=== PATIENT | female | born 1940 | race Caucasian/White ===

== ENCOUNTER 2016-05-25 11:49 | Outpatient (CLI) | payer MEDICARE, OTHER | END 2016-05-25 11:50 | disposition home or self-care (01) | DX: M25.561 Pain in right knee (principal); M17.11 Unilateral primary osteoarthritis, right knee; S83.241A Other tear of medial meniscus, current injury, right knee, initial encounter; M94.261 Chondromalacia, right knee; M25.461 Effusion, right knee ==

== ENCOUNTER 2016-05-25 11:51 | Outpatient (CLI) | payer MEDICARE, OTHER | END 2016-05-25 11:52 | disposition home or self-care (01) | DX: Z12.31 Encounter for screening mammogram for malignant neoplasm of breast (principal); Z80.3 Family history of malignant neoplasm of breast ==

== ENCOUNTER 2017-06-03 09:30 | Outpatient (CLI) | payer MEDICARE, OTHER ==
--- NOTE | 2017-06-04 17:01 | Mammography Report ---
DATE OF SERVICE: 06/03/2017 DIGITAL SCREENING MAMMOGRAM: 06/03/2017 CLINICAL INDICATION: A 76-year-old for screening. COMPARISON: 05/2016, 05/2015, 04/2014, 09/2012, 09/2011, 09/2010, 07/2009, 06/2009. The breasts again demonstrate heterogeneously dense fibroglandular parenchyma bilaterally. Coarse and punctate, typically benign calcifications are present. No suspicious masses, clustered microcalcifications, or regions of architectural distortion are identified. IMPRESSION: Benign findings. RECOMMENDATIONS: Routine annual screening unless otherwise clinically indicated. BIRADS category 2 benign findings. STANDARD QUALIFYING STATEMENTS 1. This examination was reviewed with the aid of Computed-Aided Detection (CAD). 2. A negative or benign imaging report should not delay biopsy if clinically suspicious findings are present. Consider surgical consultation if warranted. More than 5% of cancers are not identified by imaging. 3. Dense breasts may obscure an underlying neoplasm. TD: 06/04/2017 18:00
== END 2017-06-03 09:31 | disposition home or self-care (01) ==
LOC: DI 09:30
PROVIDERS: ATTEND Internal Medicine
DX: Z12.31 Encounter for screening mammogram for malignant neoplasm of breast (principal)
CPT/HCPCS: 77067

== ENCOUNTER 2017-06-03 09:36 | Outpatient (CLI) | payer MEDICARE, OTHER ==
--- NOTE | 2017-06-04 09:57 | DEXA Report ---
DEXA: 06/03/2017 CLINICAL INDICATION: Osteopenia, postmenopausal. TECHNIQUE: Dual energy x-ray absorptiometry (DXA) was performed on a [employer] system. Regions measured are the AP spine, femoral neck, and, if needed, forearm. COMPARISON: None. In accordance with the International Society for Clinical Densitometry (ISCD) guidelines, data from previous exams may be reanalyzed using current recommendations and techniques. This is done to allow a more accurate basis for comparison with the current study. FINDINGS The data for the lumbar spine is as follows: REGION BMD (g/cm/cm) T-SCORE Z-SCORE L1 1.231 0.8 2.5 L2 1.238 0.3 2.0 L3 1.349 1.2 2.9 L4 1.159 -0.3 1.3 TOTAL 1.240 0.5 2.1 NOTE: All evaluable vertebrae are used for classification. The data for the hip is as follows: REGION BMD (g/cm/cm) T-SCORE Z-SCORE Neck 0.743 -2.1 -0.2 TOTAL 0.857 -1.2 0.5 NOTE: The femoral neck or total proximal femur, whichever is lowest, is used for classification. IMPRESSION THE WHO CLASSIFICATION BASED ON THE INTERNATIONAL REFERENCE STANDARD IS OSTEOPENIA. THE FRACTURE RISK IS INCREASED. RECOMMENDATION: Patients with diagnosis of osteoporosis or osteopenia should have regular bone mineral density assessment. For those eligible for Medicare, routine testing is allowed once every 2 years. Testing frequency can be increased for patients who have rapidly progressing disease or for those who are receiving medical therapy to restore bone mass. COMMENT: World Health Organization (WHO) definitions for osteoporosis and osteopenia: NORMAL BMD: T-score at 1.0 or higher, fracture risk is low. OSTEOPENIA BMD: T-score between 1.0 and -2.5, fracture risk is increased. OSTEOPOROSIS BMD: T-score at 2.5 or lower, fracture risk high. National Osteoporosis Foundation recommends: 1. Obtain adequate dietary calcium (at least 1200 mg per day) and vitamin D (400 -800 international units per day). 2. Participate, as appropriate, in regular weightbearing and muscle- strengthening exercise. 3. Avoid tobacco use and reduce alcohol and caffeine intake. 4. For more detailed information see the website at www.NOF.org. TD: 06/03/2017 17:49 [email or web address]
== END 2017-06-03 09:37 | disposition home or self-care (01) ==
LOC: DI 09:36
PROVIDERS: ATTEND Internal Medicine
DX: M85.88 Other specified disorders of bone density and structure, other site (principal)
CPT/HCPCS: 77080

== ENCOUNTER 2017-07-13 08:00 | Outpatient (CLI) | payer MEDICARE, OTHER | END 2017-07-13 08:01 | disposition home or self-care (01) | LOC: LAB.R 08:00 | PROVIDERS: ATTEND Internal Medicine | DX: R19.7 Diarrhea, unspecified (principal) | CPT/HCPCS: 81599; 83630; 87045; 87046; 87177; 87209; 87329; 87493 ==

== ENCOUNTER 2017-12-27 10:06 | Outpatient (CLI) | payer MEDICARE, OTHER ==
[2017-12-27] MEDS ORDERED: REGADENOSON 0.4 MG/5 ML SYRINGE IVP ONE ×2 (12:32→13:55)
--- NOTE | 2017-12-27 14:55 | Nuclear Medicine Report ---
Procedure Date: 12/27/2017 Accession Number: [id number] / [id number] Procedure: NM - Myocardial Perfusion STR/RST CPT Code: FULL RESULT: EXAM: SINGLE-ISOTOPE PHARMACOLOGICAL STRESS TEST WITH REGADENOSON. SINGLE-ISOTOPE AND ONE-DAY REST/STRESS MYOCARDIAL PERFUSION SCANS WITH TOMOGRAPHIC IMAGING, QUANTITATIVE ANALYSIS, WALL MOTION ANALYSIS AND CALCULATION OF EJECTION FRACTION. EXAM DATE: 12/27/2017 02:35 PM. CLINICAL HISTORY: FATIGUE, BRADYCARDIA. COMPARISON: None available. TECHNIQUE: After the intravenous administration of 8.6 mCi of Tc-99m sestamibi, a rest myocardial perfusion scan was done with tomography. Motion correction was applied when appropriate. After an appropriate delay, pharmacological stress was performed with the infusion of 0.4 mg regadenoson per protocol. According to protocol, 42.3 mCi of Tc-99m sestamibi was injected for stress myocardial perfusion scan. Motion correction was applied when appropriate. Gated tomographic images were obtained for wall motion analysis and computation of left ventricular ejection fraction. ECG findings reported separately FINDINGS: There is a small, mild, fixed defect in the distal anterior wall. No convincing reversible perfusion defects. Computer analysis: Summed stress score 1 Summed rest score 0 Summed difference score 1 Wall motion analysis demonstrates no focal wall motion abnormality. The left ventricular end-diastolic volume is 73 cc. The left ventricular end-systolic volume is 15 cc. The left ventricular ejection fraction is calculated to be 80%. IMPRESSION: 1. Mild fixed distal anterior wall perfusion defect. No convincing reversible perfusion defects. 2. Left ventricular ejection fraction of 80%. This is likely an overestimate. 3. Normal segmental and global wall motion. 4. Normal left ventricular cavity size, no change with stress. 5. Based on computer analysis, normal study with no ischemia. RADIA
[2017-12-27 16:15] VITALS: BP 162/60
--- NOTE | 2017-12-27 16:38 | CARDIAC PROCEDURE NOTE ---
DATE OF SERVICE: 12/27/2017 Physician: Joann Mclaughlin MD FINDINGS: Heart rate response baseline 54 to maximum 86. Blood pressure response 162/60 to maximum 176/60. Symptoms: No chest pain, arrhythmias. One PVC seen. ST segment response. The patient had baseline diffuse early repolarization, which is mild. No significant ST segment elevations or depre ssions. CONCLUSION: No symptoms. No significant ST segment changes. Await imaging studies. TD: 12/27/2017 13:21
== END 2017-12-27 10:07 | disposition home or self-care (01) ==
LOC: DI 10:06
PROVIDERS: ATTEND Internal Medicine
DX: R00.1 Bradycardia, unspecified (principal); R53.83 Other fatigue
CPT/HCPCS: 78452; 93017; A9500; J2785

== ENCOUNTER 2018-09-01 15:48 | Outpatient (CLI) | payer MEDICARE, OTHER ==
--- NOTE | 2018-09-01 16:51 | Mammography Report ---
Reason: SCREENING MAMMO Procedure Date: 09/01/2018 Accession Number: [id number] / [id number] Procedure: REYMUNDO - Screening Mammo w/James CPT Code: FULL RESULT: EXAM: Screening Mammo w/James DATE: 09/01/2018 4:18 PM CLINICAL HISTORY: Screening examination. TECHNIQUE: (B) - Bilateral CC and MLO views were obtained. COMPARISON: 06/03/2017, 05/25/2016 PARENCHYMAL PATTERN: (D) - The breasts demonstrate heterogeneously dense fibroglandular parenchyma bilaterally. FINDINGS: There is a left breast asymmetry seen only on the 2-D and 3-D MLO views. On left MLO 3-D mammography it is seen on slice 16 and localizes to the central left breast, 3:00 position. It is not seen on CC views, probably because of dense breast parenchyma. IMPRESSION: Incomplete examination. BI-RADS category 0. RECOMMENDATION: (ADDUS) - Targeted ultrasound recommended. Callback targeted left breast ultrasound is recommended. BI-RADS CATEGORY: (0) - Incomplete Examination - need additional evaluation. STANDARD QUALIFYING STATEMENTS: 1. This examination was not reviewed with the aid of Computer-Aided Detection (CAD). 2. A negative or benign imaging report should not preclude biopsy if clinically suspicious findings are present. 3. Dense breasts may obscure an underlying neoplasm. 4. This examination was reviewed with the aid of 3D breast imaging (tomosynthesis).
== END 2018-09-01 15:49 | disposition home or self-care (01) ==
LOC: DI 15:48
PROVIDERS: ATTEND Internal Medicine
DX: Z12.31 Encounter for screening mammogram for malignant neoplasm of breast (principal)
CPT/HCPCS: 77063; 77067

== ENCOUNTER 2018-09-09 12:32 | Outpatient (CLI) | payer MEDICARE, OTHER ==
--- NOTE | 2018-09-13 13:44 | Ultrasound Report ---
Reason: ABNORMAL MAMMOGRAM Procedure Date: 09/09/2018 Accession Number: [id number] / [id number] Procedure: US - Breast Unilateral Limited CPT Code: FULL RESULT: EXAM: LEFT BREAST ULTRASOUND WAS PERFORMED. EXAM DATE: 09/09/2018 01:50 PM. CLINICAL HISTORY: ABNORMAL MAMMOGRAM. COMPARISON: Prior mammograms dating from 09/01/2018 through 07/11/2009. TECHNIQUE: Focused left breast ultrasound at the 2:00 and 3 o'clock position approximately 5 cm from the nipple was performed. Grayscale and limited color Doppler utilized. FINDINGS: An ill-defined hypoechoic mass is identified which measures 4.9 x 1.5 cm. The finding is suspicious. IMPRESSION: Hypoechoic ill-defined mass, suspicious finding. Recommendation: Ultrasound-guided biopsy. BI-RADS 4. RADIA
== END 2018-09-09 12:33 | disposition home or self-care (01) ==
LOC: DI 12:32
PROVIDERS: ATTEND Internal Medicine
DX: R92.8 Other abnormal and inconclusive findings on diagnostic imaging of breast (principal)
CPT/HCPCS: 76642

== ENCOUNTER 2018-09-14 14:49 | Outpatient (CLI) | payer MEDICARE, OTHER ==
--- NOTE | 2018-09-15 11:23 | XRAY Report ---
Reason: JOINT PAIN Procedure Date: 09/14/2018 Accession Number: [id number] / [id number] Procedure: WCP - Foot 2 View BILAT CPT Code: FULL RESULT: EXAMS: 1. Right Foot Radiography 2. Left Foot Radiography EXAM DATE: 09/14/2018 03:04 PM. CLINICAL HISTORY: Rheumatoid arthritis. COMPARISON: None. TECHNIQUE: 2 views each foot. FINDINGS: Right: Bones: Qualitatively mildly osteopenic. No fracture detected no erosion detected Joints: There are mild degenerative changes in the midfoot without overt erosive degeneration typical of rheumatoid arthritis. Soft Tissues: Normal. No soft tissue swelling. Left: Bones: The bones are qualitatively osteopenic; this limits evaluation for underlying fractures or masses. No fracture detected no definite erosions detected. Joints: Degenerative midfoot changes without melisa erosions. Soft Tissues: Normal. No soft tissue swelling. IMPRESSION: Degenerative midfoot changes without overt erosions. Qualitatively osteopenic. RADIA
== END 2018-09-14 14:50 | disposition home or self-care (01) ==
LOC: DI.WCP 14:49
PROVIDERS: ATTEND Internal Medicine Rheumatology
DX: M19.072 Primary osteoarthritis, left ankle and foot (principal); M19.071 Primary osteoarthritis, right ankle and foot; M85.872 Other specified disorders of bone density and structure, left ankle and foot; M85.871 Other specified disorders of bone density and structure, right ankle and foot

== ENCOUNTER 2018-09-14 14:50 | Outpatient (CLI) | payer MEDICARE, OTHER ==
--- NOTE | 2018-09-15 16:04 | XRAY Report ---
Reason: JOINT PAIN Procedure Date: 09/14/2018 Accession Number: [id number] / [id number] Procedure: WCP - Hand 2 View BILAT CPT Code: FULL RESULT: EXAMS: 1. Right Hand Radiography 2. Left Hand Radiography EXAM DATE: 09/14/2018 03:04 PM. CLINICAL HISTORY: Rheumatoid arthritis. COMPARISON: HAND 3 VIEW LT 01/06/2013 3:55 PM. TECHNIQUE: 2 views each hand. FINDINGS: Right: Bones: Normal. No fractures or bone lesions. Joints: Mild joint space narrowing of the interphalangeal joints with periarticular osteopenia. Soft Tissues: Normal. No soft tissue swelling. Left: Bones: Normal. No fractures or bone lesions. Joints: Compared to 2012, there has been interval development of marked joint space narrowing with proliferative as well as destructive changes, most pronounced in the proximal fifth interphalangeal joint and distal fourth interphalangeal joint, but also present in other interphalangeal joints. Mild degenerative changes are seen at the base of the thumb. Soft Tissues: Normal. No soft tissue swelling. IMPRESSION: Compared to 2012, marked progression of joint space disease with the appearance suggestive of erosive as well as proliferative degenerative disease. RADIA
== END 2018-09-14 14:51 | disposition home or self-care (01) ==
LOC: DI.WCP 14:50
PROVIDERS: ATTEND Internal Medicine Rheumatology
DX: M19.042 Primary osteoarthritis, left hand (principal); M19.041 Primary osteoarthritis, right hand; M19.072 Primary osteoarthritis, left ankle and foot; M19.071 Primary osteoarthritis, right ankle and foot; M85.872 Other specified disorders of bone density and structure, left ankle and foot; M85.871 Other specified disorders of bone density and structure, right ankle and foot

== ENCOUNTER 2018-09-23 08:05 | Outpatient (CLI) | payer MEDICARE, OTHER ==
[2018-09-23] MEDS ORDERED: BUPIVACAINE 0.5%-EPI 1:200000 PF 10 ML VIAL ONE (09:02)
[2018-09-23] MEDS ORDERED: BUFFERED LIDOCAINE 10 ML SYRINGE ONE (09:02)
--- NOTE | 2018-09-23 14:58 | Ultrasound Report ---
Reason: LT BREAST MASS Procedure Date: 09/23/2018 Accession Number: [id number] / [id number] Procedure: US - Biopsy Breast Core CPT Code: FULL RESULT: PROCEDURE: Ultrasound-guided needle biopsy left breast mass. CLINICAL DATA: Targeted mass measuring approximately 4.9 x 1.5 cm with irregular margins in the 3 o'clock axis of the left breast. Informed consent was obtained. Using standard aseptic technique, both 1% buffered lidocaine and Sensorcaine were injected into the left breast for local anesthesia. A small radha was made in the skin with a #11 blade. A 12-gauge CouponCabin vacuum-assisted device was used to obtain 4 specimens. A specialized biopsy marker clip was placed into the biopsy cavity under ultrasound guidance. The patient was taken to separate mammography machine and a two-view digital mammography was performed to verify the clip placement and any complications. The mammography showed expected clip positioning. The wound was dressed and ice applied. The patient was observed for approximately 15 minutes, then was discharged from diagnostic imaging Department in good condition following instructions on wound care and obtaining biopsy results. The patient is scheduled to receive the biopsy results from the referring physician. The tissue was sent for histologic analysis. IMPRESSION: Ultrasound-guided biopsy of the left breast. AN ADDENDUM WILL BE MADE TO THIS REPORT WHEN PATHOLOGY IS REVIEWED TO ESTABLISH CONCORDANCE.
[2018-09-23] MEDS ORDERED: BUFFERED LIDOCAINE 10 ML SYRINGE IU ONE (18:41)
[2018-09-23] MEDS ORDERED: BUPIVACAINE 0.5%-EPI 1:200000 PF 10 ML VIAL SUBQ ONE (18:41)
== END 2018-09-23 08:06 | disposition home or self-care (01) ==
LOC: DI 08:05
PROVIDERS: ATTEND Internal Medicine
DX: R92.8 Other abnormal and inconclusive findings on diagnostic imaging of breast (principal)
CPT/HCPCS: 19083

== ENCOUNTER 2018-09-30 10:56 | Outpatient (CLI) | payer MEDICARE, OTHER ==
--- NOTE | 2018-09-30 15:38 | XRAY Report ---
Reason: RT KNEE PAIN Procedure Date: 09/30/2018 Accession Number: [id number] / [id number] Procedure: XR - Knee Standing RT CPT Code: FULL RESULT: EXAM: RIGHT KNEE RADIOGRAPHY EXAM DATE: 09/30/2018 11:16 AM. CLINICAL HISTORY: RT KNEE PAIN. COMPARISON: None. TECHNIQUE: 2 views. FINDINGS: Bones: Normal. No fractures or bone lesions. Joints: Medial joint space osteophyte, joint space narrowing, subchondral sclerosis. Osteophyte patellofemoral compartment. Small effusion. Soft Tissues: Normal. No soft tissue swelling. IMPRESSION: Moderate to severe DJD RADIA
== END 2018-09-30 10:57 | disposition home or self-care (01) ==
LOC: DI 10:56
PROVIDERS: ATTEND Internal Medicine Rheumatology
DX: M17.11 Unilateral primary osteoarthritis, right knee (principal)

== ENCOUNTER 2019-06-07 06:16 | Inpatient (IN) | payer MEDICARE, OTHER ==
[2019-06-07] MEDS ORDERED: CEFAZOLIN SODIUM IN 0.9 % NACL 2 GM/100 ML BAG IV ONE (06:19)
[2019-06-07] MEDS ORDERED: LACTATED RINGERS 1,000 ML IV ONE (06:32)
[2019-06-07] MEDS ORDERED: BUPIVACAINE 0.5% PF 30 ML VIAL ONE (06:40)
[2019-06-07] MEDS ORDERED: CELECOXIB 100 MG CAPSULE PO ONE (07:02)
[2019-06-07] MEDS ORDERED: GABAPENTIN 400 MG CAPSULE ONE (07:02)
[2019-06-07] MEDS ORDERED: ACETAMINOPHEN 1,000 MG/100 ML 100 ML IV ONE (07:03)
--- NOTE | 2019-06-07 07:14 | ANESTHESIA ---
Pre-Anesthesia VS, & Labs - Diagnosis right knee pain, OA - Procedure right total knee arthroplasty Vital Signs: Temp Pulse Resp BP Pulse Ox 36.3 C L 72 16 139/57 H 98 06/07/19 06:41 06/07/19 06:41 06/07/19 06:41 06/07/19 06:41 06/07/19 06:41 Height 5 ft 3 in Weight (kg) 72 kg - NPO >8 hours - Is Patient ?: No Home Medications and Allergies Home Medications: Ambulatory Orders Acetaminophen [8 Hour Acetaminophen] 650 mg PO BID 06/02/19 Amlodipine Besylate 10 mg PO DAILY 06/02/19 Atorvastatin [Lipitor] 10 mg PO QPM 06/02/19 Calcium Carbonate [Calcium] 600 mg PO DAILY 06/02/19 Cyanocobalamin (Vitamin B-12) [Vitamin B-12] 1,000 mcg PO DAILY 06/02/19 Ferrous Gluconate [Iron] 240 mg PO DAILY 06/02/19 Multivitamin [Multiple Vitamins] 1 each PO DAILY 06/02/19 Enalapril Maleate 20 mg PO DAILY 09/28/12 Hydrochlorothiazide 25 mg PO DAILY 09/28/12 Trazodone HCl 100 mg PO HS 09/28/12 Acetaminophen [8 Hour Acetaminophen] 650 mg PO BID 06/02/19 Amlodipine Besylate 10 mg PO DAILY 06/02/19 Atorvastatin [Lipitor] 10 mg PO QPM 06/02/19 Calcium Carbonate [Calcium] 600 mg PO DAILY 06/02/19 Cyanocobalamin (Vitamin B-12) [Vitamin B-12] 1,000 mcg PO DAILY 06/02/19 Ferrous Gluconate [Iron] 240 mg PO DAILY 06/02/19 Multivitamin [Multiple Vitamins] 1 each PO DAILY 06/02/19 Allergies/Adverse Reactions: Allergies Allergy/AdvReac Type Severity Reaction Status Date / Time No Known Drug Allergies Allergy Verified 06/07/19 06:53 Anes History & Medical History - Anesthetic History Anesthesia Complications: reports: No previous complications - Medical History Cardiovascular: reports: Hypertension Pulmonary: reports: None Gastrointestinal: reports: None Urinary: reports: None Musculoskeletal: reports: Osteoarthritis, Osteopenia Endocrine/Autoimmune: reports: None Skin: reports: Other - Surgical History General: Colonoscopy Eyes Ears Nose Throat (EENT): Cataracts Exam General: Alert Dental: WNL Mouth Opening: Greater than 4 Fingerbreadths Mallampati classification: II Thyromental Distance: greater than 6 cm Respiratory: Lungs clear Cardiovascular: Regular rate, Normal S1, Normal S2 Plan Anesthesia Type: Spinal, Femoral Block Consent for Procedure(s) Verified and Reviewed: Yes Code Status: Attempt Resuscitation ASA classification: 2-Mild systemic disease Is this case an emergency?: No
[2019-06-07] MEDS ORDERED: BUPIVACAINE 0.5% PF 30 ML VIAL INFIL ONE ×2 (08:21)
--- NOTE | 2019-06-07 10:38 | IMMEDIATE POSTOPERATIVE NOTE ---
Immediate Postoperative Note - Procedure Note Procedure Date: 06/07/19 Pre-Op Diagnosis: Right knee degenerative joint disease Procedure: Right total knee arthroplasty Post-Op Diagnosis: Same Primary Surgeon: Katharine More MD Project Development Engineer: None Anesthesia Type: Local, MAC, Regional block, Spinal Findings: Tricompartmental DJD most notable in the medial and patellofemoral compartments Complications: No complications Estimated Blood Loss (in cc): 150 Drains, Catheters, Devices: None Specimens and Cultures: None Plan of Care: Patient tolerated procedure well instrument sponge counts correct patient transferred to the recovery in stable condition she will follow standard postoperative Total knee arthroplasty protocol
[2019-06-07] MEDS ORDERED: PROCHLORPERAZINE 10 MG/2 ML VIAL IVP PRN (10:42)
[2019-06-07] MEDS ORDERED: ACETAMINOPHEN 1,000 MG/100 ML 100 ML IV PRN (10:42)
[2019-06-07] MEDS ORDERED: ONDANSETRON 4 MG/2 ML VIAL IVP PRN (10:42)
[2019-06-07] MEDS ORDERED: SODIUM CHLORIDE FLUSH 0.9% 10 ML SYRINGE IVP PRN (10:42)
[2019-06-07] MEDS ORDERED: HYDROmorphone 0.5 MG/0.5 ML SYRINGE IVP PRN (10:42)
--- NOTE | 2019-06-07 11:57 | PHARMACY PROGRESS NOTE ---
- Best Possible Medication History Admit Date and Time: 06/07/19 0616 Processed by: Nursing Medication History completed: Yes Patient Interview: Pt unable to participate As the person ultimately responsible for medication therapy, providers are able to order a medication from an existing home medication list in [facility] via the "Reconcile Routine" prior to Confirmation of that medication by business support associate. Such practice is discouraged except when the physician, in their clinical judgment, deems that a medical need exists for a medication without regard to previous use.
--- NOTE | 2019-06-07 12:41 | OPERATIVE REPORT ---
DATE OF SERVICE: 06/07/2019 Physician: David More MD SURGEON: David More MD CLINICAL RESEARCH ASSISTANT: None. ANESTHESIOLOGIST: Maryam Diamond CRNA ANESTHESIA: Spinal, MAC, 20 mL of 0.5% plain Marcaine local, right-side adductor block under ultraso und guidance postoperatively. FLUIDS: 600 mL lactated Ringer's. ADDITIONAL MEDICATION: TXA infusion. PREOPERATIVE ANTIBIOTICS: Two grams weight-based IV Ancef. ESTIMATED BLOOD LOSS: Less than 150 mL. TOURNIQUET TIME: 120 minutes at 300 mmHg. ORTHOPEDIC IMPLANTS: 1. Gumaro Persona natural tibia, cemented, 5 degrees, right size E. 2. Gumaro Persona all-poly patella, cemented, 35 x 9 mm. 3. Gumaro Persona femur, cemented, cruciate retaining, size 8. 4. Gumaro Persona highly crosslinked polyethylene, 20-mm height, for sizes E-F/CR, sizes 8-11. 5. Gumaro Jeffrey cement. PREOPERATIVE DIAGNOSIS: Right knee degenerative disease. POSTOPERATIVE DIAGNOSIS: Right knee degenerative disease. PROCEDURE: Right total knee arthroplasty. HISTORY OF PRESENT ILLNESS AND INDICATIONS: Diane is a 78-year-old female who has had significant ri ght knee pain, not responsive to nonoperative treatment. She is indicated for operative treatment. Please see previous discussion with the patient and the patient's daughter in the preoperative clinic visit. We discussed at length risks, benefits, and alternatives. These again highlighted with the p atient and the patient's daughter in the preoperative care unit. The patient verbalized understandin g of the above and verbalized her wish to proceed with operative treatment. Informed consent was giv en. INTRAOPERATIVE FINDINGS: The patient noted to have tricompartmental degenerative disease. Post tria ling, it was felt that a size 14 mm would be appropriate, though with final implantation of 14 noted to be somewhat loose in extension and flexion. As such, post implantation of 20 mm, it was felt to be appropriately stable in extension all the way throughout the arc of motion to flexion as well. Intra-articular, there was noted to be significant medial compartment degenerative disease, less in t he patellofemoral and lateral compartments, though present. There was a slight tightness medially, b ut only minimal anterior medial elevation was required, and this flexion and extension gap was equal. Post fixation and final implantation, there was excellent range of motion greater than full extension to over 130 degrees with stability throughout arc of motion and good patellar tracking throughout. PROCEDURE: On 06/07/2019, patient was identified in the preoperative care unit. She identifies her right knee as the operative site. This was signed by the operating surgeon. The patient received preoperative weight-based IV antibiotics. She was brought to the operating room. Spinal anesthesia was administered. The patient was sedated. The patient's right lower extremity had a well-padded tourniquet placed high on the right side after Lake catheter was inserted. The guru street's right lower extremity was then pre-scrubbed with Hibiclens solution, followed by alcohol prep , and then prepped and draped with ChloraPrep solution in a sterile fashion. At this time, surgical pause then identified right knee as the operative site. Esmarch bandage was u sed to exsanguinate the limb. Tourniquet was inflated, and then anterior knee incision made in the p repatellar area just above the patella, down to the tibial tuberosity. A medial flap was elevated ju st enough such that the medial parapatellar incision could be made in the extensor mechanism. This w as then made through the extensor mechanism, around the medial side of the patella, fat pad was remov ed. The patella was carefully everted with minimal elevation of the most proximal medial aspect of t he patellar tendon. Slight anterior-medial soft-tissue elevation was performed and then ACL was rese cted, followed by clearance of the distal femur, followed by initially 7-degree angle intramedullary femoral guide after drilling of the femur, though it was felt that a 5-degree would be more appropria te, given the patient's anatomy despite preoperative measurements. The 5-degree was selected, distal femoral cut was made at 10 mm, at which point the extramedullary tibial guide was used. The 2-mm's were measured from the most affected medial compartment. This was checked with an moe wing and ebonie pped minimally below this for additional 1 mm, and ultimately the tibial cut was made with protective retractors in appropriate locations. Tibial section was removed. There was noted to be approximate ly 3-4 mm of medial bone removed. At this point, the extension gap was noted to be appropriate and a ttention was directed towards flexion of the knee and then sizing of the femur with appropriate 3-deg ree built in external rotation. Once this was sized and noted to be a size 8 without notching, this was drilled and then the 4-in-1 cutting block was used. Soft tissues were protected and then the fou r cuts were made. Bone was removed, osteophytosis was removed, and flexion and extension gaps were t hen checked and noted to be appropriate and equal. At this point, trial femur and tibia was placed, initially a 10, moving up to a 14, which was felt to be appropriate, though slightly loose in extensi on, and with initially noted to be with good stability throughout, after moving to the 14 mm. At thi s point, the patella was measured and cut to size 35. Osteophytes were removed. This was drilled an d then the patella trial was placed with good tracking throughout arc of motion. At this point, the femur was drilled. The femur was removed. The tibia sized and then drilled and punched ultimately. At this point, repeat implantation of trials was placed with a size 14 and noted to have good positi on and stability throughout with good motion. At this point, all the areas were copiously irrigated. Osteophytes were removed. Any residual menisci were removed. At this point, the surfaces were copi ously irrigated and meticulously dried, and then with modern cement technique, the femoral and tibial implants were placed, residual cement was removed, they were impacted into place and residual cement again removed. The trial poly was placed, the patella was placed and clamped, and residual cement w as removed. Betadine solution, diluted, was placed into the knee while the cement hardened, and then removed. Residual cement was soft and found to be very minimal anteriorly. No lateral, medial, or posterior cement appreciated. At this point, the final 14-mm poly was placed and then with testing of this, it was noted to be some what loose in extension and flexion, with slight opening medially as well. At this point, trials are removed up to a size 18 and then 20 mm, and it was decided that a 20 mm was appropriate, with excell ent stability in extension, flexion and in between. As such, the 14-mm was not used and this was anderson nged to a 20-mm, which was most appropriate in this case. At this point, the poly was noted to be se ated well. There was excellent range of motion and stability throughout arc of motion. Patella trac ked nicely. The wound was copiously irrigated, tourniquet was deflated, hemostasis achieved. It hector uld be noted that prior to cementation, posterior capsule was carefully injected with the aforementio aidan Marcaine. At this point, the extensor mechanism was closed using #2 FiberWire proximally and then 0 Vicryl dist ally. This was again copiously irrigated and the skin was closed in a layered fashion with 0 Vicryl and 2-0 Vicryl, and skin alfredo, followed by washing of skin, drying, and then silver dressing appli cation. Bulky Kelly dressing was placed from thigh to foot, and then Gallito wrap applied. The patient tolerated the procedure well. Instrument and sponge counts were correct. The patient wa s transferred to the recovery room in stable condition. She will be on perioperative antibiotics, pe rioperative DVT prophylaxis with mechanical and chemical DVT prophylaxis. She will return to regular medications and follow standard postoperative total knee arthroplasty protocol. The patient's daughter was contacted in the waiting room, case was discussed, questions were answered to Diane's agreement and satisfaction with plan as outlined. TD: 06/07/2019 11:11
[2019-06-07] MEDS: HYDROcod/ACETAM 5/325 MG TABLET PO PRN ×3 (12:44→20:45)
[2019-06-07] MEDS: SODIUM CHLORIDE FLUSH 0.9% 10 ML SYRINGE IVP SCH (16:59)
[2019-06-07] MEDS: ceFAZolin 2 GM in SODIUM CHLORIDE 0.9% 100ML 100 ML IV SCH (16:59)
[2019-06-07] MEDS: RIVAROXABAN 10 MG TABLET PO SCH (18:05)
[2019-06-08] MEDS: SODIUM CHLORIDE FLUSH 0.9% 10 ML SYRINGE IVP SCH ×3 (00:43→16:26)
[2019-06-08] MEDS: HYDROcod/ACETAM 5/325 MG TABLET PO PRN ×4 (00:43→13:05)
[2019-06-08] MEDS: ceFAZolin 2 GM in SODIUM CHLORIDE 0.9% 100ML 100 ML IV SCH (00:44)
[2019-06-08] MEDS ORDERED: ePHEDrine 50 MG/ML VIAL IVP ONE (08:57)
[2019-06-08] MEDS ORDERED: MIDAZOLAM 2 MG/2 ML VIAL IVP ONE (08:57)
[2019-06-08] MEDS ORDERED: fentaNYL 100 MCG/2 ML VIAL IVP ONE (08:57)
[2019-06-08] MEDS ORDERED: PROPOFOL 200 MG/20 ML VIAL IVP ONE (08:57)
[2019-06-08] MEDS ORDERED: ACETAMINOPHEN 1,000 MG/100 ML 100 ML IV ONE (08:57)
[2019-06-08] MEDS ORDERED: TRANEXAMIC ACID 1,000 MG/10 ML VIAL IV ONE (08:57)
[2019-06-08] MEDS: DOCUSATE SODIUM 100 MG CAPSULE PO PRN (13:51)
[2019-06-08] MEDS: ACETAMINOPHEN 325 MG TABLET PO PRN ×2 (13:51→20:38)
[2019-06-08] MEDS: oxyCODONE 5 MG TABLET PO PRN ×2 (16:25→20:37)
[2019-06-08] MEDS: RIVAROXABAN 10 MG TABLET PO SCH (16:26)
--- NOTE | 2019-06-08 21:34 | PROVIDER PROGRESS NOTE ---
Subjective - Prog Note Date Prog Note Date: 06/08/19 Prog Note Time: 07:00 - Subjective Pt reports feeling: Improved (patient seen this AM stating that she was comfortable and doing well and that she slept relatively well. no current knee c/o) Subjective: states comfortable. no nv/cv c/o at this time Objective - Vital Signs/Intake & Output Vital Signs: Vital Signs x48h Temp Pulse Resp BP Pulse Ox 06/08/19 20:04 37.0 C 57 L 16 141/58 H 97 06/08/19 16:06 36.6 C 59 L 16 139/47 H 100 Intake & Output: Intake & Output 06/05/19 06/06/19 06/07/19 06/08/19 23:59 23:59 23:59 23:59 Intake Total 3350 1980 Output Total 2225 850 Balance 1125 1130 - Other Results/Comments Other Results/Comments: right LE, nv unchanged distally. foot pumps in place. no calf ttp noted. dressing clean dry intact. able to SLR without assist. aaflexion 70-80deg, comfortable throughout. Assessment/Plan - Problem List (1) Right knee DJD Impression: ortho stable pod 1 s/p right tka. no s/sx infx/dvt. cont chem and mech dvt prophylaxis pt for rom/strength, amb training, teaching hep OT SW consult analgesic prn IS q1hr while awake cont current mgt consider dc once clear PT for home environment d/w pt. questions answered. patient verbalized understanding and agreement with above. Qualifiers: Osteoarthritis type: primary Qualified Code(s): M17.11 - Unilateral primary osteoarthritis, right knee
[2019-06-09] MEDS: HYDROcod/ACETAM 5/325 MG TABLET PO PRN ×2 (00:05→04:11)
[2019-06-09] MEDS: SODIUM CHLORIDE FLUSH 0.9% 10 ML SYRINGE IVP SCH ×2 (01:10→08:43)
--- NOTE | 2019-06-09 07:46 | Discharge Plan ---
Discharge Plan Problem Reviewed?: Yes Disposition: Home, Self Care Condition: Good Prescriptions: HYDROcod/ACETAM 5/325 [Hillman 5/325] 1 tab PO Q4HR PRN #30 tablet PRN Reason: Pain oxyCODONE [Roxicodone] 5 mg PO Q4HR PRN #20 tablet PRN Reason: Pain Rivaroxaban [Xarelto] 10 mg PO 1700 #10 tablet Diet: Regular Activity Restrictions: ambulate with assist and assist device prn Shower Restrictions: Yes (keep wound/dressing clean/dry/intact) Driving Restrictions: Yes (no driving) Assistance Devices: Walker Weight Bearing: Full Weight Instruction Topics: Rivaroxaban oral tablets Additional Instructions or Follow Up instructions: please advise on dc medications, highlight to avoid acetaminophen >3grams daily, and no trazadone with narcotic medications, advise on continued stool softener while on narcotics follow-up 10-14 days orthopedic clinic No Smoking: If you smoke, Please STOP! Call for help. Follow-up with: David More MD [Provider Admit Priv/Credential] - Joann Mclaughlin MD [Primary Care Provider] -
[2019-06-09] MEDS ORDERED: MAGNESIUM HYDROXIDE 2,400 MG/30 ML UDC PO PRN (08:00)
[2019-06-09] MEDS: DOCUSATE SODIUM 100 MG CAPSULE PO PRN (08:43)
[2019-06-09] MEDS: oxyCODONE 5 MG TABLET PO PRN (09:18)
[2019-06-09 11:49] VITALS: BP 151/58
== END 2019-06-09 12:00 | disposition home or self-care (01) | DRG 470 ==
LOC: MS2 06:16 → MS3 09:42 → MS2 10:12
PROVIDERS: ADMIT Orthopaedic Surgery Sports Medicine; ATTEND Orthopaedic Surgery Sports Medicine
PROC: 0SRC0J9 Replacement of Right Knee Joint with Synthetic Substitute, Cemented, Open Approach (ICD-10-PCS; principal; 2019-06-07 07:30)
DX: M17.11 Unilateral primary osteoarthritis, right knee (principal); I10 Essential (primary) hypertension; Z79.899 Other long term (current) drug therapy
CPT/HCPCS: 97110; 97116; 97162; 97166; 97530; 97535; A9270; J0131; J7120

== ENCOUNTER 2019-06-13 13:32 | Observation (INO) | payer MEDICARE, OTHER ==
[2019-06-13] MEDS ORDERED: SODIUM CHLORIDE 0.9% 1,000 ML IV STA (14:16)
--- NOTE | 2019-06-13 14:43 | XRAY Report ---
Reason: Chest Pain Procedure Date: 06/13/2019 Accession Number: [id number] / [id number] Procedure: XR - Chest 1 View X-Ray CPT Code: 66225 Final Report FULL RESULT: EXAM: CHEST RADIOGRAPHY EXAM DATE: 06/13/2019 02:33 PM. CLINICAL HISTORY: Chest pain. Passed out in seated shower. COMPARISON: None. TECHNIQUE: 1 view. FINDINGS: Lungs/Pleura: No focal opacities evident. No pleural effusion. No pneumothorax. Mediastinum: Heart size is normal. Aorta is mildly tortuous. Aortic atherosclerosis. Other: Degenerative changes of both shoulders. Thoracic scoliosis. IMPRESSION: 1. No acute disease in the chest. RADIA
--- NOTE | 2019-06-13 14:47 | ED Physician Documentation ---
PD HPI SYNCOPE - Stated complaint Stated Complaint: SYNCOPE - Chief complaint Chief Complaint: Neuro - History obtained from History obtained from: Patient, Family - History of Present Illness Witnessed: Witnessed Timing - onset: Today Duration: Minutes (1-2) Preceding symptoms: No: Headache, Vision changes, Chest pain, Palpitations, Diaphoresis, Dyspnea Associated symptoms: No: Seizure, Incontinant of urine, Incontinant of stool, Headache, Vision changes Contributing factors: Other (was in the shower) Injury occurred: None. No: Fell, Head injury, Neck injury, Bit tongue Pain level max: 0 Pain level now: 0 - Additional information Additional information: 78-year-old female states that she had her knee replacement approximately 1 week ago. Today she was in the shower when she had a syncopal event while sitting on her. She does not recall the event at all. Does not recall any prodrome. Her family states that they believe she was unconscious for approximately 1 minute. They state that she was breathing through the entire episode and never lost a pulse. She had diarrhea after the episode. Currently feels normal. She is status post a right total knee replacement approximately 1 week ago. No chest pain. No shortness of breath. Does not know what medication she takes at home. She states that she has passed out in the past, but not recently. Review of Systems Unable to obtain: Uncooperative Constitutional: denies: Fever Eyes: denies: Photophobia Ears: denies: Ear pain Nose: denies: Rhinorrhea / runny nose, Congestion Throat: denies: Sore throat Cardiac: denies: Chest pain / pressure, Palpitations, Calf pain Respiratory: denies: Dyspnea GI: denies: Abdominal Pain, Nausea, Vomiting, Diarrhea Skin: denies: Rash Musculoskeletal: denies: Neck pain, Back pain Neurologic: denies: Focal weakness, Numbness, Confused, Altered mental status, Headache, Head injury PD PAST MEDICAL HISTORY - Past Medical History Past Medical History: Yes Cardiovascular: Hypertension Respiratory: None Endocrine/Autoimmune: None GI: None : None HEENT: Chronic vision loss Psych: None Musculoskeletal: Osteoarthritis, Osteopenia Derm: Other - Past Surgical History Past Surgical History: Yes General: Colonoscopy HEENT: Cataracts - Present Medications Home Medications: Ambulatory Orders Medication Instructions Recorded Confirmed Enalapril Maleate 20 mg PO BID 09/28/12 06/13/19 Hydrochlorothiazide 12.5 mg PO DAILY 09/28/12 06/13/19 Trazodone HCl 100 mg PO QPM 09/28/12 06/13/19 Amlodipine Besylate 10 mg PO DAILY 06/02/19 06/13/19 Atorvastatin [Lipitor] 10 mg PO QPM 06/02/19 06/13/19 Cyanocobalamin (Vitamin B-12) 1,000 mcg PO DAILY 06/02/19 06/13/19 [Vitamin B-12] Multivitamin [Multiple Vitamins] 1 tab PO DAILY 06/02/19 06/13/19 HYDROcod/ACETAM 5/325 [Lutz 5/325] 1 tab PO Q4HR PRN #30 tablet 06/09/19 06/13/19 Acetaminophen 500 mg PO BID 06/13/19 06/13/19 Calcium/Magnesium/Zinc 1 tab PO DAILY 06/13/19 06/13/19 [Rpchlot-Ozxuvtcbb-Ihnu Tablet] Melatonin 10 mg PO QPM 06/13/19 06/13/19 Rivaroxaban [Xarelto] 10 mg PO 1700 06/13/19 06/13/19 - Allergies Allergies/Adverse Reactions: Allergies Allergy/AdvReac Type Severity Reaction Status Date / Time No Known Drug Allergies Allergy Verified 06/13/19 13:45 - Social History Does the pt smoke?: No Smoking Status: Never smoker Does the pt drink ETOH?: No Does the pt have substance abuse?: No - Immunizations Immunizations: TDAP >10years/unknown PD ED PE NORMAL - Vitals Vital signs reviewed: Yes - General General: Alert and oriented X 3, No acute distress, Well developed/nourished - HEENT HEENT: PERRL, Moist mucous membranes - Neck Neck: Supple, no meningeal sign, No bruit - Cardiac Cardiac: RRR, No murmur, Strong equal pulses - Respiratory Respiratory: No respiratory distress, Clear bilaterally - Abdomen Abdomen: Soft, Non tender, Non distended - Derm Derm: Warm and dry, No rash - Extremities Extremities: Other (Edema to the right lower extremity, consistent with postoperative swelling. No signs of infection) - Neuro Neuro: Alert and oriented X 3 - Psych Psych: Normal mood, Normal affect Results - Vitals Vitals: Vital Signs - 24 hr 06/13/19 06/13/19 06/13/19 13:43 15:00 16:00 Temperature 36.2 C L Heart Rate 64 62 68 Respiratory 20 14 15 Rate Blood Pressure 146/52 H 137/44 H 145/70 H O2 Saturation 99 100 100 Oxygen O2 Source Room air - EKG (time done) 1351 Rate: Rate (enter#) (56) Rhythm: NSR Winslow: Normal Intervals: Normal ID QRS: Normal, LVH Ischemia: Normal ST segments - Labs Labs: Laboratory Tests 06/13/19 06/13/19 06/13/19 13:49 14:32 14:32 WBC 8.3 RBC 3.03 L Hgb 9.4 L Hct 29.2 L MCV 96.4 MCH 31.0 MCHC 32.2 RDW 12.5 Plt Count 251 MPV 9.6 Neut # (Auto) 6.4 Lymph # (Auto) 0.8 L Cassia # (Auto) 0.8 Eos # (Auto) 0.1 Baso # (Auto) 0.0 Absolute Nucleated RBC 0.00 Nucleated RBC % 0.0 Sodium 133 L Potassium 4.3 Chloride 95 L Carbon Dioxide 27 Anion Gap 11.0 BUN 21 H Creatinine 1.0 Estimated GFR (MDRD) 54 L Glucose 149 H POC Whole Bld Glucose 123 H Calcium 9.6 Total Bilirubin 1.0 AST 33 ALT 18 Alkaline Phosphatase 43 Troponin I High Sens Total Protein 7.2 Albumin 3.8 Globulin 3.4 Albumin/Globulin Ratio 1.1 Lipase 26 Urine Color Urine Clarity Urine pH Ur Specific Ignacio Urine Protein Urine Glucose (UA) Urine Ketones Urine Occult Blood Urine Nitrite Urine Bilirubin Urine Urobilinogen Ur Leukocyte Esterase Ur Microscopic Review Urine Culture Comments 06/13/19 06/13/19 14:32 15:41 WBC RBC Hgb Hct MCV MCH MCHC RDW Plt Count MPV Neut # (Auto) Lymph # (Auto) Cassia # (Auto) Eos # (Auto) Baso # (Auto) Absolute Nucleated RBC Nucleated RBC % Sodium Potassium Chloride Carbon Dioxide Anion Gap BUN Creatinine Estimated GFR (MDRD) Glucose POC Whole Bld Glucose Calcium Total Bilirubin AST ALT Alkaline Phosphatase Troponin I High Sens 8.4 Total Protein Albumin Globulin Albumin/Globulin Ratio Lipase Urine Color YELLOW Urine Clarity CLEAR Urine pH 7.0 Ur Specific Ignacio 1.010 Urine Protein NEGATIVE Urine Glucose (UA) NEGATIVE Urine Ketones NEGATIVE Urine Occult Blood NEGATIVE Urine Nitrite NEGATIVE Urine Bilirubin NEGATIVE Urine Urobilinogen 0.2 (NORMAL) Ur Leukocyte Esterase NEGATIVE Ur Microscopic Review NOT INDICATED Urine Culture Comments NOT INDICATED - Rads (name of study) Chest x-ray Radiology: Prelim report reviewed, EMP read contemporaneously, See rad report (No acute disease in the chest. ) PD MEDICAL DECISION MAKING - ED course Complexity details: reviewed results, re-evaluated patient, considered differential, d/w patient, d/w family, d/w biztalk consultant ED course: Patient presents to the emergency department with syncope today. No prodrome. Does not recall the event. Concerning for potential arrhythmia. No evidence of pulmonary embolus. We will place the patient on the hospital for observation and further evaluation. Discussed the case with Dr. Blue, hospitalist who accepts This document was made in part using voice recognition software. While efforts are made to proofread this document, sound alike and grammatical errors may occur. Departure - Departure Disposition: ED Place in Observation Clinical Impression: Syncope Qualifiers: Syncope type: unspecified Qualified Code(s): R55 - Syncope and collapse Condition: Good Discharge Date/Time: 06/13/19 17:05
[2019-06-13 14:48] LABS: BASOPHILS % (AUTO) 0.5 %; EOSINOPHILS # (AUTO) 0.1 10^3/uL (0.0-0.7); EOSINOPHILS % (AUTO) 1.7 %; HGB - HEMOGLOBIN 9.4 g/dL (12.0-16.0); LYMPHOCYTES # (AUTO) 0.8 10^3/uL (1.5-3.5); LYMPHOCYTES % (AUTO) 9.9 %; MEAN CORPUSCULAR HGB CONC 32.2 g/dL (32.0-36.0); MEAN CORPUSCULAR VOLUME 96.4 fL (81.0-99.0); MEAN PLATELET VOLUME 9.6 fL (7.9-10.8); MONOCYTES # (AUTO) 0.8 10^3/uL (0.0-1.0); MONOCYTES % (AUTO) 9.8 %; NEUTROPHILS # (AUTO) 6.4 10^3/uL (1.5-6.6); NEUTROPHILS % (AUTO) 77.5 %; PLT - PLATELET COUNT 251 10^3/uL (130-450); RED BLOOD COUNT 3.03 10^6/uL (4.20-5.40); RED CELL DISTRIBUTION WIDTH 12.5 % (12.0-15.0); WHITE BLOOD COUNT 8.3 x10^3/uL (4.8-10.8)
[2019-06-13 15:07] LABS: ALBUMIN 3.8 g/dL (3.2-5.5); ALBUMIN/GLOBULIN RATIO 1.1 (1.0-2.2); CALCIUM 9.6 mg/dL (8.5-10.3); TOTAL PROTEIN 7.2 g/dL (6.7-8.2)
[2019-06-13 15:51] LABS: BILIRUBIN,URINE NEGATIVE (NEGATIVE); CLARITY,URINE CLEAR (CLEAR); GLUCOSE, URINE (UA) NEGATIVE (NEGATIVE); KETONES,URINE (UA) NEGATIVE (NEGATIVE); LEUKOCYTE ESTERASE, URINE NEGATIVE (NEGATIVE); NITRITE,URINE NEGATIVE (NEGATIVE); OCCULT BLOOD,URINE NEGATIVE (NEGATIVE); PROTEIN,URINE NEGATIVE (NEGATIVE); UROBILINOGEN,URINE 0.2 (NORMAL) E.U./dL (NORMAL)
[2019-06-13] MEDS ORDERED: ONDANSETRON 4 MG/2 ML VIAL IVP PRN (16:41)
[2019-06-13] MEDS ORDERED: SODIUM CHLORIDE FLUSH 0.9% 10 ML SYRINGE IVP PRN (16:41)
--- NOTE | 2019-06-13 18:49 | PHARMACY PROGRESS NOTE ---
- Best Possible Medication History Admit Date and Time: 06/13/19 0761 Processed by: Pharmacy Medication History completed: Yes Patient Interview: Completed Secondary Source(s): Written medication list (copy on pt's cell phone), Other family member (daughter), Pharmacy records ([facility] ), Insurance records As the person ultimately responsible for medication therapy, providers are able to order a medication from an existing home medication list in [facility] via the "Reconcile Routine" prior to Confirmation of that medication by clinical support tech. Such practice is discouraged except when the physician, in their clinical judgment, deems that a medical need exists for a medication without regard to previous use.
--- NOTE | 2019-06-13 19:05 | HISTORY & PHYSICAL EXAMINATION ---
DATE OF SERVICE: 06/13/2019 Physician: Rita Blue MD HISTORY OF PRESENT ILLNESS: This is a 78-year-old white female with a history of hypertension, who recently underwent an elective right knee arthroplasty. She had this done here. She is now at home, using a walker for ambulation and today, took her first shower postop with a chair in the shower. She had no prodrome and the next thing she knows she had syncope, had slumped against the sidewall of the shower and her daughter, who is assisting her with a shower was trying to wake her up. She was able to awaken completely. The report from the family to the emergency room doctor was that she was breathing all the time, but not responsive. The family called the PCP for advice and got no callback, they then called Dr. More who had just done the orthopedic surgery and he stated to bring her to the emergency room. They did not call an ambulance. Therefore, there are no vital signs at the scene. She was brought to the ER by her daughter and the patient states she was awake and alert and can remember all of this, and did not have any lightheadedness. In the emergency room, her evaluation was essentially benign and she is being placed in observation for workup of syncope. In the ER, there was discussion that she had one other syncopal episode in the past, but to me she states and if there while she cannot remember any details. In summer of last year, she described having an office visit for extreme fatigue and lab workup showed no essential findings, therefore, she underwent a stress test, which was done using pharmaceutical stress and the nuclear scan portion revealed an inferior fixed defect and she was referred to a manufacturing project manager. The manufacturing project manager repeated the stress test by walking, but she cannot remember if there were any images associated with it. This was done in [place] by Dr. Novak. She was told this was normal. She cannot remember if she has ever had an echo. Because of this result, she was cleared for the knee surgery, which was done approximately a week ago. Since that time, she still remained fatigued and there has been no diagnosis was placed regarding this. The manufacturing project manager did add a third antihypertensive medication to her regimen, but decreased one of her other 2 BP medication doses. ALLERGIES: NONE. MEDICATIONS 1. Oxycodone p.r.n. 2. Iron 240 mg daily. 3. Lipitor 10 mg at night. 4. Trazodone 100 mg at night. 5. Xarelto 10 mg every evening. 6. Multivitamin daily. 7. HCTZ 25 mg daily. 8. Tylenol with Codeine p.r.n. 9. Enalapril 20 mg daily. 10. Amlodipine 10 mg daily. 11. Tylenol p.r.n. pain. 12. Calcium carbonate 600 mg daily. 13. Vitamin B12 1000 mcg daily. FAMILY HISTORY: Noncontributory. SOCIAL HISTORY: She lives with her and her daughter and son-in-law. She has never smoked, drinks no alcohol. No illicit drug use history. REVIEW OF SYSTEMS: A comprehensive review of systems was performed and the pertinent positives are listed, the rest are negative. PHYSICAL EXAMINATION GENERAL: White female who is in no distress. VITAL SIGNS: Blood pressure 130/40, heart rate is 60s and sinus rhythm, afebrile, room air saturation 100%. HEENT: Unremarkable. NECK: Without JVD in a vertical position. No carotid bruits. CHEST: Clear. HEART: Soft S1, S2 and a 3/6 mid peaking systolic murmur heard at the lower left sternal border and base. There is no gallop. ABDOMEN: Soft, nontender. EXTREMITIES: Trace pretibial edema. No clubbing or cyanosis. NEUROLOGIC: Grossly intact. LABORATORY DATA: Sodium 133, otherwise normal electrolytes, BUN 21, creatinine 1.0. Normal liver tests. Normal albumin and lipase. White blood 8, platelet count normal at 251. Hemoglobin is 9.4, which is down from 11 one year ago. Urinalysis unremarkable. No INR was done, because this would be not accurate in a patient on Xarelto. CHEST X-RAY: No active pulmonary disease. EKG: Sinus rhythm, heart rate 56. LVH voltage. No other findings. IMPRESSION AND DIAGNOSES 1. Syncope. 2. Heart murmur. 3. Anemia. 4. Hyponatremia. 5. Prerenal acute renal failure. 6. History of hypertension. 7. History of fatigue. PLAN: Place patient in Observation status on telemetry. Watch for bradycardia, since it was reportedly present before, may have been the cause of the syncope. Hold her 3 blood pressure medications since even without them she has a normal blood pressure. Check orthostatic vital signs as she may have had marked hypotension with 3 blood pressure medications and being pre-renal on labs, which could be the cause of the syncope. Continue with her iron replacement. Obtain an Echo to evaluate the heart murmur; if IHSS is present, her vasodiltor meds would not be optimum BP treatment. Follow BMP, given the low sodium, which may also play a role in this syncope. Obtain the stress test and any other workup from Dr. Nvoak done approximately 5 months ago at [facility]. CODE STATUS: FULL CODE. DEEP VENOUS THROMBOSIS PROPHYLAXIS: Pharmaceutical on Xarelto. ATTESTATION: Patient is expected to be discharged or transferred to another facility within 96 hours: Yes. cc: Joann Mclaughlin MD TD: 06/13/2019 18:51 MTDD
[2019-06-13] MEDS: RIVAROXABAN 10 MG TABLET PO SCH (19:12)
[2019-06-13] MEDS: SODIUM CHLORIDE FLUSH 0.9% 10 ML SYRINGE IVP SCH (19:13)
[2019-06-13] MEDS ORDERED: ATORVASTATIN 10 MG TABLET PO SCH (21:00)
[2019-06-13] MEDS: ACETAMINOPHEN 325 MG TABLET PO PRN (22:26)
[2019-06-14] MEDS: oxyCODONE 5 MG TABLET PO PRN ×3 (00:59→13:10)
[2019-06-14] MEDS: SODIUM CHLORIDE FLUSH 0.9% 10 ML SYRINGE IVP SCH ×2 (00:59→10:25)
[2019-06-14] MEDS: ACETAMINOPHEN 325 MG TABLET PO PRN ×3 (03:30→16:49)
[2019-06-14 05:51] LABS: BASOPHILS # (AUTO) 0.1 10^3/uL (0.0-0.1); BASOPHILS % (AUTO) 0.7 %; EOSINOPHILS # (AUTO) 0.3 10^3/uL (0.0-0.7); EOSINOPHILS % (AUTO) 3.9 %; HGB - HEMOGLOBIN 8.6 g/dL (12.0-16.0); LYMPHOCYTES # (AUTO) 1.7 10^3/uL (1.5-3.5); LYMPHOCYTES % (AUTO) 22.8 %; MEAN CORPUSCULAR HEMOGLOBIN 30.8 pg (27.0-31.0); MEAN CORPUSCULAR HGB CONC 32.2 g/dL (32.0-36.0); MEAN CORPUSCULAR VOLUME 95.7 fL (81.0-99.0); MEAN PLATELET VOLUME 9.6 fL (7.9-10.8); NEUTROPHILS # (AUTO) 4.5 10^3/uL (1.5-6.6); NEUTROPHILS % (AUTO) 59.2 %; PLT - PLATELET COUNT 243 10^3/uL (130-450); RED BLOOD COUNT 2.79 10^6/uL (4.20-5.40); RED CELL DISTRIBUTION WIDTH 12.5 % (12.0-15.0); WHITE BLOOD COUNT 7.6 x10^3/uL (4.8-10.8)
[2019-06-14 06:00] LABS: CREATININE 0.8 mg/dL (0.4-1.0); MAGNESIUM 1.9 mg/dL (1.7-2.8)
[2019-06-14 08:37] LABS: % IRON SATURATION 13 % (20-50); IRON 34 ug/dL (28-170); TOTAL IRON BINDING CAPACITY 267 ug/dL (250-450); TRANSFERRIN 191 mg/dL (192-382)
[2019-06-14] MEDS ORDERED: amLODIPine 5 MG TABLET PO SCH (09:00)
[2019-06-14] MEDS ORDERED: FERROUS GLUCONATE 324 MG TABLET PO SCH (09:00)
[2019-06-14] MEDS ORDERED: hydroCHLOROthiazide 25 MG TABLET PO SCH (09:00)
[2019-06-14 16:24] VITALS: BP 158/48
[2019-06-14] MEDS: RIVAROXABAN 10 MG TABLET PO SCH (16:49)
--- NOTE | 2019-06-14 17:26 | Discharge Plan ---
Discharge Plan Problem Reviewed?: Yes Disposition: Home, Self Care Condition: Stable Prescriptions: Ferrous Gluconate [Fergon] 270 mg PO DAILY #30 tablet Diet: Low Sodium Activity Restrictions: Activity as Tolerated Shower Restrictions: No Driving Restrictions: Yes (No driving a vehicle until cleared to do so by your PCP) Health Concerns: You were in observation for having fainted. We found that you were mildly dehydrated, moderately anemic and suspect that your 3 blood pressure medications were excessive for you. In addition, your melatonin and trazodone sedatives with narcotics for pain, may also have added to the fainting spell. Evaluation here found that you have normal heart function, mild leaking of your heart valves causing a murmur and the carotid Doppler showed mild plaque build-up bilaterally. You may resume your HCTZ and Amlodipine, but do not take the Enalapril, for blood pressure control. A new refill for Iron tablets was ordered and sent to your pharmacy. You should see your PCP in follow-up in 5-10 days for blood pressure measurements and any other medication adjustments. You are cleared to resume physical therapy for the knee. You are not cleared to drive a vehicle until your PCP orders that you may resume driving. Plan of Treatment: As above. Care Goals: Improvement and stabilization are the goals. Assessment: The patient understands and is agreeable with the plan. Additional Instructions or Follow Up instructions: If you should have another fainting spell, call 911 for paramedics to get immediate attention (taking vital signs at the scene helps the most with determining the cause). No Smoking: If you smoke, Please STOP! Call for help. Follow-up with: Joann Mclaughlin MD [Primary Care Provider] -
--- NOTE | 2019-06-14 17:30 | DISCHARGE SUMMARY ---
Discharge Summary Admit Date: 06/13/19 Discharge Date: 06/14/19 Discharging Provider: Dr Rita Blue Primary Care Provider: Dr Mclaughlin, Dr Novak Code Status: Attempt Resuscitation Condition at Discharge: Stable Discharge Disposition: 01 Home, Self Care - DIAGNOSES Admission Diagnoses: 1) Syncope 2) Heart murmur 3) Anemia 4) Hyponatremia 5) Pre-renal acute renal failure 6) Hx of HTN 7) Hx fatigue Discharge Diagnoses with Status of Each Condition: See below - HPI History of Present Illness: This is a 78 y/o WF with Hx of HTN who recently underwent elective R knee arthroplasty, still has extensive dependant bruising, who was in a shower chair getting a shower by her daughter, when she had syncope and slumped along the side of the shower wall, was breathing, and could eventually be awakened. The family called the PCP then the orthopedic surgeon for advise on what to do, and were told to take her to the ER. No dairy powder mixer operator were called, therefore there are no vital signs at the scene. The daughter drove her to the ER and she was awake and could recall this trip and the ER eval. BP at presentation was 130/50, a murmur was audible, and labs showed Na 133, BUN/creat 21/1.0, Hgb 9.4, down from 11 one year ago. She was placed in Observation status to evaluate syncope. - HOSPITAL COURSE Hospital Course: 1) Syncope Her syncope was likely multifactorial: Excessive blood pressure medications (her blood pressure was 140/50 without any of her 3 blood pressure medicines while here), also due to marked anemia (iron deficiency, she stated this had started many months before having the surgery of the right knee with subsequent bruising), mild dehydration by her labs, possible oversedation with recent narcotic use plus her nightly trazodone and melatonin use. She received iv hydration, was put on oral Iron replacement, had no narcotics used while here, and one of her BP meds was advised to be stopped. Carotid Dopplers showed moderate plaque bilaterally, Echo and f/u labs were also done (see below). 2) Heart murmur The Echo showed normal LV and RV function, mild LV diastolic dysfunction, mild mitral and tricuspid regurgitation and calculated PA pressure 35 mmHg. 3) Anemia Her labs showed normal B12 and Folate levels and very low Transferrin and % saturation. She was started on oral iron replacement. She reported already hav ing a Hx of iron deficiency anemia and taking iron in the recent past. She was told to have f/u with her PCP regarding this problem. 4) Hyponatremia Despite iv saline hydration overnight, her Na was still low at 132 the following day. 5) Pre-renal acute renal failure With the iv hydration, her BUN/creat was 16/0.8 the next day. She was reminded to stay well hydrated. 6) Hx of HTN She was on HCTZ 25 mg, Amlodipine 10 mg and Enalapril 20 mg for BP control. Her orthostatic VS showed: laying 154/51, sitting 147/58 and standing 136/44. Therefore, she had high-normal BPs without any BP meds, therefore she was advised to resume Amlodipine and HCTZ after DCh home, but to stop Enalapril and to have f/u with her PCP (and/or Floorperson) for BP management. 7) Hx fatigue She described having extensive cardiac evaluation last and this winter for c/o fatigue: there was a nuclear stress test here that showed an inferior defect and the testing was repeated by Dr Novak in [facility], and she reported that it was normal (we do not have results to confirm). She has still remained fatigued and no diagnosis was ever determined, she said. Perhaps orthostasis, anemia and dehydration were already causing fatigue then. - ALLERGIES Allergies/Adverse Reactions: Allergies Allergy/AdvReac Type Severity Reaction Status Date / Time No Known Drug Allergies Allergy Verified 06/13/19 13:45 - MEDICATIONS Home Medications: Ambulatory Orders Medication Instructions Recorded Confirmed Hydrochlorothiazide 12.5 mg PO DAILY 09/28/12 06/13/19 Trazodone HCl 100 mg PO QPM 09/28/12 06/13/19 Amlodipine Besylate 10 mg PO DAILY 06/02/19 06/13/19 Atorvastatin [Lipitor] 10 mg PO QPM 06/02/19 06/13/19 Cyanocobalamin (Vitamin B-12) 1,000 mcg PO DAILY 06/02/19 06/13/19 [Vitamin B-12] Multivitamin [Multiple Vitamins] 1 tab PO DAILY 06/02/19 06/13/19 HYDROcod/ACETAM 5/325 [[place] 5/325] 1 tab PO Q4HR PRN #30 tablet 06/09/19 06/13/19 Acetaminophen 500 mg PO BID 06/13/19 06/13/19 Calcium/Magnesium/Zinc 1 tab PO DAILY 06/13/19 06/13/19 [Eiwtsqy-Fmmglsjzv-Umud Tablet] Melatonin 10 mg PO QPM 06/13/19 06/13/19 Rivaroxaban [Xarelto] 10 mg PO 1700 06/13/19 06/13/19 Ferrous Gluconate [Fergon] 270 mg PO DAILY #30 tablet 06/14/19 - PHYSICAL EXAM AT DISCHARGE General Appearance: positive: No acute distress, Alert Eyes Bilateral: positive: Normal inspection, EOMI ENT: positive: ENT inspection nml, No signs of dehydration Neck: positive: Nml inspection, No JVD Respiratory: positive: No respiratory distress, Breath sounds nml Cardiovascular: positive: Regular rate & rhythm, Systolic murmur Abdomen: positive: Non-tender, Nml bowel sounds, No distention Skin: positive: Pallor Extremities: positive: No pedal edema, Other (R knee scar, R srivastava bruised) Neurologic/Psychiatric: positive: Oriented x3, Other (Grossly normal) - LABS Result Diagrams: 06/14/19 05:32 06/14/19 05:32 - DIAGNOSTIC IMAGING Diagnostic Imaging Results: Final report reviewed - FOLLOW UP Follow Up: See PCP and/or Floorperson for BP and anemia management. - TIME SPENT Time Spent in Discharge (Minutes): 60
--- NOTE | 2019-06-14 17:39 | Ultrasound Report ---
Reason: syncope Procedure Date: 06/14/2019 Accession Number: [id number] / [id number] Procedure: US - Carotid Doppler Complete CPT Code: Final Report FULL RESULT: EXAM: BILATERAL CAROTID AND VERTEBRAL ARTERY DUPLEX DOPPLER ULTRASOUND: EXAM DATE: 06/14/2019 04:26 PM. CLINICAL HISTORY: Syncope. COMPARISON: None. TECHNIQUE: Grayscale imaging, color Doppler, and duplex spectral Doppler were used to evaluate the carotid and vertebral arteries bilaterally. Static images were obtained. FINDINGS: Minimal hypodense plaque seen at the left carotid bulb and proximal internal carotid artery.Normal antegrade flow is present in bilateral vertebral arteries. VELOCITIES (cm/sec): Right CCA mid: PSV 96 cm/sec CCA dist: PSV 76 cm/sec ICA prox: PSV 87 cm/sec, EDV 23 cm/sec ICA mid: PSV 116 cm/sec, EDV 17 cm/sec ICA dist: PSV 125 cm/sec, EDV 15 cm/sec ECA: PSV 157 cm/sec Vert: PSV 72 cm/sec ICA/CCA: 1.30 Left CCA mid: PSV 92 cm/sec CCA dist: PSV 80 cm/sec ICA prox: PSV 90 cm/sec, EDV 22 cm/sec ICA mid: PSV 112 cm/sec, EDV 23 cm/sec ICA dist: PSV 136 cm/sec, EDV 27 cm/sec ECA: PSV 111 cm/sec Vert: PSV 76 cm/sec ICA/CCA: 1.48 IMPRESSION: 1. Right distal internal carotid artery peak systolic velocities are 125 cm/s and the left is 136 cm/s. These velocities can be seen with 50-69% stenosis, however the arteries appear patent, and the elevated velocities could be due to tortuosity. Otherwise, no evidence for 50% or greater stenosis seen in the bilateral internal carotid arteries. See above. General Recommendations: Stenosis =50% ICA - Follow-up ultrasound 6-12 months Stenosis <50% ICA - High Risk Patient with plaque - Follow-up ultrasound 1-2 years Normal Study but High Risk Patient - Follow-up ultrasound 3-5 years Management recommendations and diagnostic criteria are based on current IAC endorsed standards in Carotid Artery Stenosis: Grayscale and Doppler Ultrasound Diagnosis. Validated velocity measurements with angiographic measurements and velocity criteria are extrapolated from diameter data as defined by the Society of Radiologists in Ultrasound Consensus Conference Radiology 2003; 229;340-346. RADIA
== END 2019-06-14 18:51 | disposition home or self-care (01) ==
LOC: ED 13:32 → MS2 16:31
PROVIDERS: ADMIT Internal Medicine; ATTEND Internal Medicine
DX: R55 Syncope and collapse (principal); N17.9 Acute kidney failure, unspecified; E86.0 Dehydration; D50.9 Iron deficiency anemia, unspecified; E87.1 Hypo-osmolality and hyponatremia; I11.9 Hypertensive heart disease without heart failure; I08.1 Rheumatic disorders of both mitral and tricuspid valves; Z79.899 Other long term (current) drug therapy; Z79.01 Long term (current) use of anticoagulants; Z96.651 Presence of right artificial knee joint
CPT/HCPCS: 36415; 71045; 80048; 80053; 81003; 82607; 82746; 83540; 83690; 83735; 84466; 84484; 85025; 93005; 93306; 93880; 96360; 99285; A9270; G0378; 81001; 87086

== ENCOUNTER 2019-07-04 19:48 | Outpatient (CLI) | payer MEDICARE, OTHER ==
--- NOTE | 2019-07-04 21:18 | Ultrasound Report ---
Reason: RT LEG LOCALIZED SWELLING Procedure Date: 07/04/2019 Accession Number: [id number] / [id number] Procedure: US - Duplex Ext Veins Right CPT Code: Final Report FULL RESULT: EXAM: RIGHT LOWER EXTREMITY VENOUS ULTRASOUND EXAM DATE: 07/04/2019 08:33 PM. CLINICAL HISTORY: RT LEG LOCALIZED SWELLING. Status post right knee surgery. COMPARISON: None. TECHNIQUE: Real-time sonographic vascular imaging was performed by the titrator through the lower extremity utilizing both color-flow and Doppler spectral analysis. Multiple inventory representative static images were saved for review. FINDINGS: Common Femoral Vein (CFV): Normal. CFV-GSV Junction: Normal. Profunda Femoral Vein (PFV): Normal. Femoral Vein (FV) Prox: Normal. Femoral Vein (FV) Mid: Normal. Femoral Vein (FV) Dist: Normal. Popliteal Vein: Normal. Posterior Tibial Veins: Not well visualized although no evidence for thrombus. Peroneal Veins: Not well visualized although no evidence for thrombus. Other: Subcutaneous edema. Complex collection is present measuring 4.2 x 0.8 x 2.3 cm adjacent to the scar status post right knee surgery. IMPRESSION: 1. No evidence of right lower extremity deep venous thrombosis. 2. Complex 4.2 x 0.8 x 2.3 cm collection adjacent to the scar status post right knee surgery. RADIA
== END 2019-07-04 19:49 | disposition home or self-care (01) ==
LOC: DI 19:48
PROVIDERS: ATTEND Orthopaedic Surgery Sports Medicine
DX: R22.41 Localized swelling, mass and lump, right lower limb (principal)

== ENCOUNTER 2019-11-24 13:12 | Outpatient (CLI) | payer MEDICARE, OTHER ==
--- NOTE | 2019-11-28 14:56 | Mammography Report ---
BILATERAL DIGITAL SCREENING MAMMOGRAM 3D/2D: 11/24/2019 CLINICAL: Routine screening. Comparison is made to exams dated: 09/23/2018 ultrasound, 09/23/2018 mammogram, 09/09/2018 ultrasound, 09/01/2018 mammogram, and 06/03/2017 mammogram - [facility]. The tissue of both raj sts is heterogeneously dense. This may lower the sensitivity of mammography. There is an oval low density asymmetry with an indistinct margin in the left breast at 1 o'clock post erior depth. No other significant masses, calcifications, or other findings are seen in either breast. IMPRESSION: INCOMPLETE: NEEDS ADDITIONAL IMAGING EVALUATION The oval low density asymmetry in the left breast is indeterminate. Mediolateral and spot compressio n views as well as additional views with possible ultrasound are recommended. This exam was interpreted at Station ID: [id number]. NOTE: For mammograms, a report in lay terms will be sent to the patient. Approximately 15% of breast malignancies will not be visualized mammographically. In the management of a palpable breast mass, a negative mammogram must not discourage biopsy of a clinically suspicious lesion. Electronically Signed By: Prakash Min M.D. ddtrent/penrad:11/24/2019 15:27:43 ACR BI-RADS Category 0: Incomplete 3340F PARENCHYMAL PATTERN: (D) - The breast(s) demonstrate(s) heterogeneously dense fibroglandular daniela rubin. BI-RADS CATEGORY: (0) - 0 Mammo and US [id number] Immediate follow-up LATERALITY: (B)
== END 2019-11-24 13:13 | disposition home or self-care (01) ==
LOC: DI 13:12
PROVIDERS: ATTEND Internal Medicine
DX: Z12.31 Encounter for screening mammogram for malignant neoplasm of breast (principal); R92.8 Other abnormal and inconclusive findings on diagnostic imaging of breast
CPT/HCPCS: 77063; 77067

== ENCOUNTER 2019-11-24 13:23 | Outpatient (CLI) | payer MEDICARE, OTHER ==
--- NOTE | 2019-11-24 14:53 | XRAY Report ---
PROCEDURE: Knee 4 View LT INDICATIONS: LT KNEE PAIN TECHNIQUE: 4 views of the left knee(s) were acquired. COMPARISON: None. FINDINGS: Bones: No fractures or dislocations. No suspicious bony lesions. Moderate tricompartmental periart icular osteophyte formation. Moderate medial compartment narrowing. Soft tissues: No joint effusion. No suspicious soft tissue calcifications. IMPRESSION: Osteoarthritis with medial compartment narrowing. No acute fracture. No osseous lesion. If symptoms and/or clinical suspicion for pathology continue, further assessment with repeat plain fi lms, or advanced imaging (e.g., CT, MRI, or bone scan) is recommended for further assessment. Reviewed by: Krystal Negron MD on 11/24/2019 2:51 PM PDT Approved by: Krystal Negron MD on 11/24/2019 2:51 PM PDT Station ID: [id number]
== END 2019-11-24 13:24 | disposition home or self-care (01) ==
LOC: DI 13:23
PROVIDERS: ATTEND Orthopaedic Surgery
DX: M17.12 Unilateral primary osteoarthritis, left knee (principal)

== ENCOUNTER 2020-01-02 10:00 | Outpatient (CLI) | payer MEDICARE, OTHER ==
--- NOTE | 2020-01-03 08:16 | Ultrasound Report ---
LIMITED ULTRASOUND OF LEFT BREAST: 01/02/2020 CLINICAL: Patient returns today to evaluate a density in the left breast. Comparison is made to exams dated: 01/02/2020 mammogram, 11/24/2019 mammogram, 09/23/2018 ultrasound, mammogram, 09/09/2018 ultrasound, and 09/01/2018 mammogram - [facility]. Real-time ultrasound of the left breast 1-3 o'clock region was performed. Ortiz scale images of the real-time examination were reviewed. No significant abnormalities were seen sonographically in the left breast. IMPRESSION: PROBABLY BENIGN There is no abnormality seen in the left breast to correspond with the mammography finding which is f avored to represent a lymph node or cyst and is probably benign. A follow-up left mammogram and an ultrasound in 6 months is recommended to demonstrate stability. Findings and recommendations were conveyed to the patient during today's evaluation. This exam was interpreted at Station ID: [id number]. Electronically Signed By: Manuel Awan M.D. aty/:01/02/2020 12:07:53 Ultrasound BI-RADS: 3 Probably benign BI-RADS CATEGORY: (3) - 3 Mammo and [place] [id number] 6 month follow-up LATERALITY: (L)
--- NOTE | 2020-01-03 08:16 | Mammography Report ---
UNILATERAL LEFT DIGITAL DIAGNOSTIC MAMMOGRAM 3D/2D: 01/02/2020 CLINICAL: Patient returns today to evaluate a density in the left breast. Comparison is made to exams dated: 11/24/2019 mammogram, 09/23/2018 mammogram, 09/01/2018 mammogram, mammogram, 05/25/2016 mammogram, and 05/30/2015 mammogram - [facility]. The t issue of left breast is heterogeneously dense. This may lower the sensitivity of mammography. Redemonstration of previously described 0.6 cm oval low density asymmetry with an obscured margin in the left breast at 2 o'clock posterior depth. This is seen in additional views. No other significant masses or calcifications are seen in the breast. IMPRESSION: INCOMPLETE: NEEDS ADDITIONAL IMAGING EVALUATION The 0.6 cm oval low density asymmetry in the left breast resembles a cyst or a lymph node and is inde terminate. An ultrasound is recommended for further evaluation and is scheduled to immediately follow this study . This exam was interpreted at Station ID: [id number]. NOTE: For mammograms, a report in lay terms will be sent to the patient. Approximately 15% of breast malignancies will not be visualized mammographically. In the management of a palpable breast mass, a negative mammogram must not discourage biopsy of a clinically suspicious lesion. Electronically Signed By: Manuel Awan M.D. aty/:01/02/2020 11:09:19 ACR BI-RADS Category 0: Incomplete 3340F PARENCHYMAL PATTERN: (D) - The breast(s) demonstrate(s) heterogeneously dense fibroglandular daniela rubin. BI-RADS CATEGORY: (0) - 0 Ultrasound [id number] Immediate follow-up LATERALITY: (L)
== END 2020-01-02 10:01 | disposition home or self-care (01) ==
LOC: DI 10:00
PROVIDERS: ATTEND Internal Medicine
DX: R92.8 Other abnormal and inconclusive findings on diagnostic imaging of breast (principal)
CPT/HCPCS: 76642

== ENCOUNTER 2020-08-22 11:53 | Outpatient (CLI) | payer MEDICARE, OTHER ==
[2020-08-22 17:51] LABS: BASOPHILS # (AUTO) 0.1 10^3/uL (0.0-0.1); BASOPHILS % (AUTO) 1.1 %; EOSINOPHILS # (AUTO) 0.1 10^3/uL (0.0-0.7); EOSINOPHILS % (AUTO) 1.6 %; HCT - HEMATOCRIT 35.4 % (37.0-47.0); HGB - HEMOGLOBIN 11.4 g/dL (12.0-16.0); LYMPHOCYTES % (AUTO) 17.2 %; MEAN CORPUSCULAR HEMOGLOBIN 31.7 pg (27.0-31.0); MEAN CORPUSCULAR HGB CONC 32.2 g/dL (32.0-36.0); MEAN CORPUSCULAR VOLUME 98.3 fL (81.0-99.0); MEAN PLATELET VOLUME 10.6 fL (7.9-10.8); MONOCYTES # (AUTO) 0.5 10^3/uL (0.0-1.0); MONOCYTES % (AUTO) 9.3 %; NEUTROPHILS % (AUTO) 70.8 %; PLT - PLATELET COUNT 240 10^3/uL (130-450); RED CELL DISTRIBUTION WIDTH 13.1 % (12.0-15.0); WHITE BLOOD COUNT 5.6 x10^3/uL (4.8-10.8)
[2020-08-22 18:08] LABS: ALBUMIN 4.8 g/dL (3.2-5.5); ALBUMIN/GLOBULIN RATIO 1.4 (1.0-2.2); ALKALINE PHOSPHATASE 56 IU/L (42-121); ALT ALANINE AMINOTRANSFERASE 17 IU/L (10-60); AST ASPARTATE AMINOTRANSFERASE 32 IU/L (10-42); BILIRUBIN,TOTAL 0.8 mg/dL (0.2-1.0); BUN - BLOOD UREA NITROGEN 24 mg/dL (6-20); CALCIUM 10.2 mg/dL (8.5-10.3); CARBON DIOXIDE - CO2 28 mmol/L (21-32); CHLORIDE 102 mmol/L (101-111); CHOL/HDL RATIO 2.1 (<4.4); CHOLESTEROL 184 mg/dL; CK- CREATINE KINASE 106 IU/L (22-269); CREATININE 0.9 mg/dL (0.4-1.0); GFR - MDRD 60 (>89); GLUCOSE 95 mg/dL (70-100); HDL CHOLESTEROL 88 mg/dL; LDL CHOLESTEROL,CALCULATED 82 mg/dL; LDL/HDL RATIO 0.9 (<4.4); SODIUM 139 mmol/L (135-145); TOTAL PROTEIN 8.3 g/dL (6.7-8.2); TRIGLYCERIDES 68 mg/dL; VLDL CHOLESTEROL 14 mg/dL
[2020-08-22 18:20] LABS: THYROID STIMULATING HORMONE 3.55 uIU/mL (0.34-5.60)
[2020-08-22 18:22] LABS: FREE T4 (FREE THYROXINE) 0.93 ng/dL (0.58-1.64)
== END 2020-08-22 11:54 | disposition home or self-care (01) ==
LOC: LAB.N 11:53
PROVIDERS: ATTEND Internal Medicine
DX: I10 Essential (primary) hypertension (principal); E03.8 Other specified hypothyroidism; C43.9 Malignant melanoma of skin, unspecified; Z79.899 Other long term (current) drug therapy; Z13.6 Encounter for screening for cardiovascular disorders
CPT/HCPCS: 36415; 80053; 80061; 82550; 83721; 84439; 84443; 85025

== ENCOUNTER 2020-10-24 09:54 | Outpatient (CLI) | payer MEDICARE, OTHER ==
--- NOTE | 2020-10-25 08:56 | Mammography Report ---
BILATERAL DIGITAL DIAGNOSTIC MAMMOGRAM 3D/2D: 10/24/2020 CLINICAL: Patient returns for a 6 month follow up of the left breast. Routine screening. Comparison is made to exams dated: 01/02/2020 ultrasound, 01/02/2020 mammogram, 11/24/2019 mammogram, ultrasound, 09/23/2018 mammogram, and 09/09/2018 ultrasound - [facility]. T he tissue of both breasts is heterogeneously dense. This may lower the sensitivity of mammography. There is a stable 0.6 cm oval asymmetry in the left breast at 2 o'clock posterior depth. No other significant masses, calcifications, or other findings are seen in either breast. IMPRESSION: PROBABLY BENIGN Stable 0.6 cm oval asymmetry in the left breast which is probably benign. This is unchanged since Nov. A follow-up mammogram in 12 months is recommended. This exam was interpreted at Station ID: [id number]. NOTE: For mammograms, a report in lay terms will be sent to the patient. Approximately 15% of breast malignancies will not be visualized mammographically. In the management of a palpable breast mass, a negative mammogram must not discourage biopsy of a clinically suspicious lesion. Electronically Signed By: Surendra Avina M.D. jr/:10/24/2020 11:10:25 ACR BI-RADS Category 3: Probably benign 3343F PARENCHYMAL PATTERN: (D) - The breast(s) demonstrate(s) heterogeneously dense fibroglandular daniela rubin. BI-RADS CATEGORY: (3) - 3 Mammogram [id number] 12 month follow-up LATERALITY: (B)
== END 2020-10-24 09:55 | disposition home or self-care (01) ==
LOC: DI 09:54
PROVIDERS: ATTEND Internal Medicine
DX: R92.8 Other abnormal and inconclusive findings on diagnostic imaging of breast (principal)

== ENCOUNTER 2021-07-07 14:54 | Outpatient (CLI) | payer MEDICARE, OTHER ==
--- NOTE | 2021-07-07 15:16 | XRAY Report ---
PROCEDURE: Lumbar Spine 2 View INDICATIONS: LOW BACK PAIN TECHNIQUE: 2 views of the lumbar spine were acquired. COMPARISON: None. FINDINGS: L-SPINE: No acute displaced fracture. Dextrocurvature of the lumbar spine, which may reflect degenera tive scoliosis. The vertebral body heights are maintained. Facet arthrosis at L5-S1. The sacroiliac joints appear patent. SOFT TISSUES: No focal abnormality. IMPRESSION: 1.No acute osseous abnormality of the lumbar spine. Reviewed by: Emil Hooks MD on 07/07/2021 3:15 PM PST Approved by: Emil Hooks MD on 07/07/2021 3:15 PM PST Station ID: [id number]
== END 2021-07-07 14:55 | disposition home or self-care (01) ==
LOC: DI 14:54
PROVIDERS: ATTEND Internal Medicine
DX: M54.50 Low back pain, unspecified (principal)

== ENCOUNTER 2021-08-01 08:00 | Outpatient (CLI) | payer MEDICARE, OTHER ==
--- NOTE | 2021-08-01 10:40 | XRAY Report ---
PROCEDURE: Knee 4 View BILAT INDICATIONS: BILAT KNEE PAIN TECHNIQUE: 4 views of the bilateral knee(s) were acquired. COMPARISON: November 24, 2019 FINDINGS: RIGHT: Right knee arthroplasty without evidence of hardware compromise. Small suprapatellar joint eff usion. LEFT: No acute, displaced fracture or dislocation. Small suprapatellar joint effusion. Moderate narro wing of the medial compartment. Tricompartment osteophytosis. Lateral meniscal calcification is seen. IMPRESSION: 1.Left knee degeneration as detailed above. Reviewed by: Emil Hooks MD on 08/01/2021 10:39 AM PDT Approved by: Emil Hooks MD on 08/01/2021 10:39 AM PDT Station ID: [id number]
== END 2021-08-01 23:59 | disposition home or self-care (01) ==
LOC: DI.WOS 08:00
PROVIDERS: ATTEND Physician Assistant
DX: M17.10 Unilateral primary osteoarthritis, unspecified knee (principal)

== ENCOUNTER 2021-09-15 08:00 | Outpatient (CLI) | payer MEDICARE, OTHER ==
[2021-09-15 15:59] LABS: BASOPHILS # (AUTO) 0.1 10^3/uL (0.0-0.1); EOSINOPHILS # (AUTO) 0.1 10^3/uL (0.0-0.7); HCT - HEMATOCRIT 36.5 % (37.0-47.0); LYMPHOCYTES % (AUTO) 16.1 %; MEAN CORPUSCULAR HEMOGLOBIN 32.1 pg (27.0-31.0); MEAN CORPUSCULAR HGB CONC 32.9 g/dL (32.0-36.0); MEAN CORPUSCULAR VOLUME 97.6 fL (81.0-99.0); MONOCYTES # (AUTO) 0.6 10^3/uL (0.0-1.0); NEUTROPHILS # (AUTO) 4.5 10^3/uL (1.5-6.6); NEUTROPHILS % (AUTO) 72.6 %; PLT - PLATELET COUNT 241 10^3/uL (130-450); RED BLOOD COUNT 3.74 10^6/uL (4.20-5.40); RED CELL DISTRIBUTION WIDTH 12.9 % (12.0-15.0); WHITE BLOOD COUNT 6.2 x10^3/uL (4.8-10.8)
[2021-09-15 17:25] LABS: ALBUMIN 4.9 g/dL (3.2-5.5); ALBUMIN/GLOBULIN RATIO 1.5 (1.0-2.2); ALKALINE PHOSPHATASE 45 IU/L (42-121); ALT ALANINE AMINOTRANSFERASE 17 IU/L (10-60); AST ASPARTATE AMINOTRANSFERASE 33 IU/L (10-42); BILIRUBIN,TOTAL 0.7 mg/dL (0.2-1.0); BUN - BLOOD UREA NITROGEN 24 mg/dL (6-20); CALCIUM 10.4 mg/dL (8.5-10.3); CARBON DIOXIDE - CO2 26 mmol/L (21-32); CHLORIDE 100 mmol/L (101-111); CHOL/HDL RATIO 1.8 (<4.4); CHOLESTEROL 183 mg/dL; CK- CREATINE KINASE 104 IU/L (22-269); CREATININE 0.8 mg/dL (0.4-1.0); GFR - MDRD 69 (>89); GLUCOSE 93 mg/dL (70-100); HDL CHOLESTEROL 100 mg/dL; LDL CHOLESTEROL,CALCULATED 69 mg/dL; LDL/HDL RATIO 0.7 (<4.4); POTASSIUM 3.9 mmol/L (3.5-5.0); SODIUM 139 mmol/L (135-145); TOTAL PROTEIN 8.1 g/dL (6.7-8.2); TRIGLYCERIDES 71 mg/dL; VLDL CHOLESTEROL 14 mg/dL
[2021-09-15 18:04] LABS: THYROID STIMULATING HORMONE 4.72 uIU/mL (0.34-5.60)
[2021-09-15 18:06] LABS: FREE T4 (FREE THYROXINE) 0.81 ng/dL (0.58-1.64)
== END 2021-09-15 23:59 | disposition home or self-care (01) ==
LOC: LAB 08:00
PROVIDERS: ATTEND Internal Medicine
DX: Z00.00 Encounter for general adult medical examination without abnormal findings (principal); D64.9 Anemia, unspecified; M54.9 Dorsalgia, unspecified; E83.52 Hypercalcemia; I10 Essential (primary) hypertension; R68.89 Other general symptoms and signs; M25.569 Pain in unspecified knee; C43.9 Malignant melanoma of skin, unspecified; M19.90 Unspecified osteoarthritis, unspecified site; N32.81 Overactive bladder; E02 Subclinical iodine-deficiency hypothyroidism
CPT/HCPCS: 36415; 80053; 80061; 82550; 83721; 84439; 84443; 85025

== ENCOUNTER 2022-01-22 10:37 | Outpatient (CLI) | payer MEDICARE, OTHER ==
--- NOTE | 2022-01-22 12:34 | Mammography Report ---
BILATERAL DIGITAL DIAGNOSTIC MAMMOGRAM 3D/2D: 01/22/2022 CLINICAL: Patient returns for a 12 month follow up of the left breast. Comparison is made to exams dated: 10/24/2020 mammogram, 01/02/2020 mammogram, 11/24/2019 mammogram, 02/2019 mammogram, and 09/01/2018 mammogram - [facility]. Both breasts are heterogeneously dense, which may obscure small masses (category c / 51-75% glandula r tissue). There is a stable asymmetry with an indistinct margin in the left breast at 1 o'clock middle depth. No other significant masses, calcifications, or other findings are seen in either breast. IMPRESSION: INCOMPLETE: NEEDS ADDITIONAL IMAGING EVALUATION The stable asymmetry in the left breast most likely is fibroglandular tissue and is indeterminate. A n ultrasound is recommended. Based on the Tyrer Cuzick model (a risk assessment model) the patients lifetime risk is 1.1% and her 10 year risk is 0.0%. According to the ACR, ACS, and NCCN guidelines, an annual breast MRI exam glenda g with mammogram is recommended if the patients lifetime risk is 20% or greater. This exam was interpreted at Station ID: [id number]. NOTE: For mammograms, a report in lay terms will be sent to the patient. Approximately 15% of breast malignancies will not be visualized mammographically. In the management of a palpable breast mass, a negative mammogram must not discourage biopsy of a clinically suspicious lesion. Electronically Signed By: Blaise Claudio acr/:01/22/2022 11:48:11 ACR BI-RADS Category 0: Incomplete 3340F PARENCHYMAL PATTERN: (D) - The breast(s) demonstrate(s) heterogeneously dense fibroglandular pardayan rubin. BI-RADS CATEGORY: (0) - 0 Ultrasound [id number] Immediate follow-up LATERALITY: (L)
--- NOTE | 2022-01-22 12:34 | Ultrasound Report ---
LIMITED ULTRASOUND OF LEFT BREAST: 01/22/2022 CLINICAL: Patient returns today to evaluate an asymmetry in the left breast. Comparison is made to exams dated: 01/22/2022 mammogram, 10/24/2020 mammogram, 01/02/2020 ultrasound, mammogram, 11/24/2019 mammogram, and 09/23/2018 ultrasound - [facility]. Ultrasound of the left breast 2-3 o'clock region was performed. Ortiz scale images of the real-time e xamination were reviewed. IMPRESSION: NEGATIVE There is no sonographic evidence of malignancy. There are no abnormalities seen in the left axilla to correspond with the mammography findings at 2, 3, and 4 o'clock and in the left axilla which is consistent with normal fibroglandular tissue. A 1 year screening mammogram is recommended. This exam was interpreted at Station ID: [id number]. Electronically Signed By: Blaise Claudio acr/:01/22/2022 11:50:19 Ultrasound BI-RADS: 1 Negative BI-RADS CATEGORY: (1) - 1 RECOMMENDATION: (ANNUAL) - Recommend routine annual screening mammography. [id number] 1 year screening LATERALITY: (B)
== END 2022-01-22 10:38 | disposition home or self-care (01) ==
LOC: DI 10:37
PROVIDERS: ATTEND Internal Medicine
DX: R92.8 Other abnormal and inconclusive findings on diagnostic imaging of breast (principal)

== ENCOUNTER 2022-05-20 15:46 | Outpatient (CLI) | payer MEDICARE, OTHER ==
--- NOTE | 2022-05-20 16:51 | XRAY Report ---
PROCEDURE: Knee 4 View BILAT INDICATIONS: Bilat knee pain TECHNIQUE: 4 views of the bilateral knee(s) were acquired. COMPARISON: None. FINDINGS: Bones: There is prior right total knee arthroplasty with anatomic right knee alignment. No fracture or dislocation. No gross hardware loosening or failure. Moderate to severe tricompartmental osteoarthritis in left knee is seen most notably in medial femora l tibial compartment. No fractures or dislocations. No suspicious bony lesions. Soft tissues: No joint effusion. No suspicious soft tissue calcifications. IMPRESSION: 1. Prior right total knee arthroplasty with anatomic right knee alignment. No fracture or dislocation . No evidence of hardware loosening or failure. 2. Moderate to severe tricompartmental osteoarthritis in left knee. No fracture or dislocation. No si gnificant joint effusion. Reviewed by: Rupesh Virk MD on 05/20/2022 4:50 PM PST Approved by: Rupesh Virk MD on 05/20/2022 4:50 PM PST Station ID: [id number]
== END 2022-05-20 15:47 | disposition home or self-care (01) ==
LOC: DI.WOS 15:46
PROVIDERS: ATTEND Physician Assistant Surgical
DX: M17.12 Unilateral primary osteoarthritis, left knee (principal); Z96.651 Presence of right artificial knee joint

== ENCOUNTER 2022-12-31 14:37 | Outpatient (CLI) | payer MEDICARE, OTHER ==
[2022-12-31 15:00] LABS: BASOPHILS # (AUTO) 0.1 10^3/uL (0.0-0.1); BASOPHILS % (AUTO) 0.7 %; EOSINOPHILS # (AUTO) 0.1 10^3/uL (0.0-0.7); EOSINOPHILS % (AUTO) 1.8 %; HCT - HEMATOCRIT 35.1 % (37.0-47.0); HGB - HEMOGLOBIN 11.4 g/dL (12.0-16.0); LYMPHOCYTES % (AUTO) 13.4 %; MEAN CORPUSCULAR HEMOGLOBIN 31.1 pg (27.0-31.0); MEAN CORPUSCULAR HGB CONC 32.5 g/dL (32.0-36.0); MEAN CORPUSCULAR VOLUME 95.9 fL (81.0-99.0); MONOCYTES # (AUTO) 0.7 10^3/uL (0.0-1.0); MONOCYTES % (AUTO) 9.7 %; NEUTROPHILS # (AUTO) 5.6 10^3/uL (1.5-6.6); NEUTROPHILS % (AUTO) 74.1 %; PLT - PLATELET COUNT 229 10^3/uL (130-450); RED BLOOD COUNT 3.66 10^6/uL (4.20-5.40); RED CELL DISTRIBUTION WIDTH 12.7 % (12.0-15.0); WHITE BLOOD COUNT 7.6 x10^3/uL (4.8-10.8)
[2022-12-31 15:07] LABS: CALCIUM, IONIZED 1.27 mmol/L (1.15-1.33); VBG PH 7.406 (7.31-7.41)
[2023-01-04 18:08] LABS: A/G RATIO 1.2 (0.7-1.7); ALBUMIN 4.1 g/dL (2.9-4.4); ALPHA-1-GLOBULIN 0.3 g/dL (0.0-0.4); BETA GLOBULIN 1.1 g/dL (0.7-1.3); GAMMA GLOBULIN 1.1 g/dL (0.4-1.8); GLOBULIN, TOTAL 3.4 g/dL (2.2-3.9); PROTEIN TOTAL 7.5 g/dL (6.0-8.5)
== END 2022-12-31 14:38 | disposition home or self-care (01) ==
LOC: LAB 14:37
PROVIDERS: ATTEND Internal Medicine
DX: E83.52 Hypercalcemia (principal); R53.83 Other fatigue; N28.9 Disorder of kidney and ureter, unspecified; E03.8 Other specified hypothyroidism
CPT/HCPCS: 36415; 82306; 82330; 83970; 84155; 84165; 84439; 85025

== ENCOUNTER 2023-01-02 08:00 | Outpatient (CLI) | payer MEDICARE, OTHER | END 2023-01-02 08:01 | disposition home or self-care (01) | LOC: LAB 08:00 | PROVIDERS: ATTEND Internal Medicine | DX: R53.83 Other fatigue (principal); N28.9 Disorder of kidney and ureter, unspecified; E83.52 Hypercalcemia; E03.8 Other specified hypothyroidism | CPT/HCPCS: 82570; 84156; 84166 ==

== ENCOUNTER 2023-01-25 12:18 | Outpatient (CLI) | payer MEDICARE, OTHER ==
--- NOTE | 2023-01-26 09:34 | Mammography Report ---
BILATERAL DIGITAL SCREENING MAMMOGRAM 3D/2D: 01/25/2023 CLINICAL: Routine screening. Comparison is made to exams dated: 01/22/2022 mammogram, 10/24/2020 mammogram, 01/02/2020 mammogram, 11/14 mammogram, and 09/23/2018 mammogram - [facility]. Both breasts are heterogeneously dense, which may obscure small masses (category c / 51-75% glandular tissue). No significant masses, calcifications, or other findings are seen in either breast. There has been no significant interval change. IMPRESSION: NEGATIVE There is no mammographic evidence of malignancy. A 1 year screening mammogram is recommended. Based on the Tyrer Cuzick model (a risk assessment model) the patients lifetime risk is 0.8% and her 10 year risk is 0.0%. According to the ACR, ACS, and NCCN guidelines, an annual breast MRI exam glenda g with mammogram is recommended if the patients lifetime risk is 20% or greater. This exam was interpreted at Station ID: [id number]. NOTE: For mammograms, a report in lay terms will be sent to the patient. Approximately 15% of breast malignancies will not be visualized mammographically. In the management of a palpable breast mass, a negative mammogram must not discourage biopsy of a clinically suspicious lesion. Electronically Signed By: Manuel cheema/gisel:01/25/2023 16:48:54 letter sent: No_Letter ACR BI-RADS Category 1: Negative 3341F PARENCHYMAL PATTERN: (D) - The breast(s) demonstrate(s) heterogeneously dense fibroglandular daniela rubin. BI-RADS CATEGORY: (1) - 1 Mammogram [id number] 1 year screening LATERALITY: (B)
== END 2023-01-25 12:19 | disposition home or self-care (01) ==
LOC: DI 12:18
PROVIDERS: ATTEND Internal Medicine
DX: Z12.31 Encounter for screening mammogram for malignant neoplasm of breast (principal); R53.83 Other fatigue; E83.52 Hypercalcemia; N28.9 Disorder of kidney and ureter, unspecified; E02 Subclinical iodine-deficiency hypothyroidism
CPT/HCPCS: 82570; 84156; 84166

== ENCOUNTER 2023-10-25 11:32 | Outpatient (CLI) | payer MEDICARE, OTHER ==
--- NOTE | 2023-10-25 13:42 | XRAY Report ---
PROCEDURE: Knee 3V BL INDICATIONS: BILATERAL KNEE PAIN TECHNIQUE: 3 views of the knee(s) were acquired. COMPARISON: 11/24/2019, 08/01/2021 FINDINGS: Bones: No fractures or dislocations. No suspicious bony lesions. Well-aligned right total knee ar throplasty without hardware complication. Left-sided tricompartmental joint space narrowing with asso ciated osteophytosis. Soft tissues: Small right and trace left knee joint effusions. No suspicious soft tissue calcificati ons or masses. Chondrocalcinosis. IMPRESSION: No acute bony abnormality. Left-sided mild to moderate tricompartmental osteoarthritis. Kellgren-Júnior scale of osteoarthriti s: 2. Well-aligned right total knee arthroplasty without hardware complication. Chondrocalcinosis, which could be age-related, associated with CPPD or parathyroid disorder. Reviewed by: Antonio Swanson MD on 10/25/2023 1:41 PM PDT Approved by: Antonio Swanson MD on 10/25/2023 1:41 PM PDT Station ID: [id number]
== END 2023-10-25 11:33 | disposition home or self-care (01) ==
LOC: DI 11:32
PROVIDERS: ATTEND Internal Medicine
DX: M17.12 Unilateral primary osteoarthritis, left knee (principal); M25.561 Pain in right knee; M11.262 Other chondrocalcinosis, left knee; M11.261 Other chondrocalcinosis, right knee